=== PATIENT | male | born 1930 | race Caucasian/White ===

== ENCOUNTER 2017-04-16 21:28 | Observation (INO) | payer MEDICARE, OTHER ==
[~2017-04-16] VITALS: Ht 172.7 cm; Wt 65.0 kg
[~2017-04-16 21:28] MED LIST: ALBU8I INH; ALLO100T PO; ASPI1TAB7 PO; ATOR20TA PO; CHOL50006 PO; CYAN25003 PO; DOCU1CAP39 PO; LEVA750T PO; MEMA28CA PO; METO50CR PO; NEOSOIN TOP; PROT40TA PO; RIVA20 PO; ROBIDM5S PO
[2017-04-16 21:30] VITALS: BP 162/75; PULSE 101; RESP 16; TEMP 98.9; O2SAT 96
[2017-04-16] MEDS ORDERED: LISI2.5T3 PO (21:54)
[2017-04-16] MEDS ORDERED: ALLO100T PO (21:54)
[2017-04-16] MEDS ORDERED: XARE20TA PO (21:54)
[2017-04-16] MEDS ORDERED: MEMA28CA PO (21:54)
[2017-04-16] MEDS ORDERED: METO25TA6 PO (21:54)
[2017-04-16] MEDS ORDERED: ATOR20TA15 PO (21:54)
[2017-04-16] MEDS ORDERED: METF500T PO (21:54)
[2017-04-16] MEDS ORDERED: ASPI81CH37 CHEW (21:54)
--- NOTE | 2017-04-16 22:13 | PD ---
HPI Chief Complaint: Medical Clearance Time Seen by Provider: 21:45 Travel History International Travel<30 days: No Contact w/Intl Traveler<30days: No Traveled to known affect area: No History of Present Illness HPI The patient is an 86 year old male who presents to the [facility] emergency department with a history of or frequently choking while eating that began approximately 6 months ago with his first episode. He has a history of dementia , therefore his history is obtained from his family members at the bedside. They report that over the last 2 weeks he has had 2 episodes, today he had a third episode that was worse than any of the others. He was coughing up continuously for 45 minutes a large volume of sputum. They reported that the sputum thick and consisted of 2 cups of clear mucus. He has not had any known fevers. He reports having some nausea this time. He denies having any chest pain, chest pressure, or shortness of breath. The patient and the patient's family deny him having any recent neck pain, abdominal pain, vomiting, diarrhea , urinary symptoms, or other neurologic symptoms. [facility] Past Medical History Narrative Medical The patient's past medical history is sick and begin for hypertension, diabetes mellitus, history of coronary artery disease with a stent placed, history of pacemaker placement due to cardiac arrhythmia, history of chronic kidney disease , history of Alzheimer's dementia. Hx Anticoagulant Therapy: Yes Atrial Fibrillation: Yes Heart Rhythm Problems: Yes (BIFASCICULAR BLOCK) Cancer: No Cardiovascular Problems: Yes (PACER) High Cholesterol: Yes Coronary Artery Disease: Yes Diabetes: Yes (BORDERLINE) Patient Takes Glucophage: Yes Diminished Hearing: No Endocrine: Yes Gout: Yes Genitourinary: No Hepatitis: No Hiatal Hernia: No Hypertension: Yes Immune Disorder: No Musculoskeletal: Yes (arthritis back problems) Neurologic: No Psychiatric: No Reproductive: No Respiratory: No Myocardial Infarction: Yes Renal Failure: Yes (CHRONIC KIDNEY DISEASE STAGE III) Thyroid Disease: No Tetanus Vaccination: < 5 Years Influenza Vaccination: No Past Surgical History Narrative Surgical The patient's past surgical history is significant for cardiac catheterization with stent placement, ventral hernia repair,, pacemaker placement, and back surgery. Abdominal Surgery: Yes (VENTRAL HERNIA REPAIR) Body Medical Devices: x1 cardiac stent Cardiac Surgery: Yes (pacemaker insertion) Coronary Stent: Yes (X 1) Joint Replacement: No Pacemaker: Yes Other Surgery: Yes Social History Alcohol Use: No Tobacco Use: No (QUIT 40 YEARS AGO) Substance Use: No Allergies-Medications (Allergen,Severity, Reaction): Coded Allergies: Baclofen (Verified Allergy, Severe, Anaphylaxis, 04/16/17) Cipro (Verified Allergy, Severe, Rash, 04/16/17) Neosporin (Verified Allergy, Severe, Rash, 04/16/17) Simvastatin (Verified Allergy, Severe, Rash, 04/16/17) Zosyn (Verified Allergy, Severe, Hives, 04/16/17) Reported Meds & Prescriptions Reported Meds & Active Scripts Active Reported Namenda Xr (Memantine) 28 Mg Caper 28 Mg PO DAILY Xarelto (Rivaroxaban) 20 Mg Tab 20 Mg PO DAILY Atorvastatin (Atorvastatin Calcium) 20 Mg Tab 20 Mg PO HS Metoprolol Succinate ER 24 HR (Metoprolol Succinate) 25 Mg Tab 25 Mg PO DAILY Lisinopril 2.5 Mg Tab 2.5 Mg PO DAILY Aspirin Low Dose (Aspirin) 81 Mg Chew 162 Mg CHEW DAILY Allopurinol 100 Mg Tab 100 Mg PO DAILY Metformin (Metformin HCl) 500 Mg Tab 500 Mg PO DAILY With a meal Review of Systems Except as stated in HPI: all other systems reviewed are Neg General / Constitutional: No: Fever Eyes: No: Visual changes HENT: No: Headaches Cardiovascular: No: Chest Pain or Discomfort Respiratory: Positive: Cough, No: Shortness of Breath Gastrointestinal: Positive: Nausea, No: Abdominal Pain Genitourinary: No: Dysuria Musculoskeletal: No: Pain Skin: No Rash Neurologic: No: Weakness, Focal Abnormalities, Coordination Problem, Change in Mentation, Slurred Speech, Sensory Disturbance Psychiatric: No: Depression Endocrine: No: Polydipsia Hematologic/Lymphatic: No: Easy Bruising Physical Exam Narrative General: The patient is a well-developed well-nourished male in no acute distress. Head and Neck exam: Head is normocephalic atraumatic. Eyes: EOMI, pupils are equal round and reactive to light. Nose: Midline septum with pink mucous membranes Mouth: Dentition unremarkable. Moist mucus membranes. Posterior oropharynx is not erythematous. No tonsillar hypertrophy. Uvula midline. Airway patent. Neck: No palpable lymphadenopathy. No nuchal rigidity. No thyromegaly. Cardiovascular: Sinus tachycardia in the low 100s, heart rate of 101 on my arrival to the room without murmurs, gallops, or rubs. No pulse deficit to the extremities. On simultaneous auscultation and palpation of his radial artery Lungs: Crackles are audible in the right lower lung base, no wheezes, rhonchi. No accessory muscle use. No paroxysmal abdominal breathing. No conversational dyspnea. Abdomen: Soft, without tenderness to palpation in all 4 quadrants of the abdomen. No guarding, rebound, or rigidity. Normal bowel sounds are audible. No tenderness on palpation of McBurney's point. Negative Wynn sign. Extremities: No clubbing, cyanosis, or edema. 2+ pulses in all 4 extremities. No calf tenderness on palpation. Back: No costovertebral angle tenderness to palpation. Neurologic Exam: Grossly nonfocal. Skin Exam: No rash noted. Intact skin that is warm and dry. Data Data Last Documented VS Vital Signs Date Time Temp Pulse Resp B/P Pulse Ox O2 Delivery O2 Flow Rate FiO2 04/16/17 21:46 18 04/16/17 21:30 98.9 101 162/75 96 Room Air Orders Chest, Single Ap (04/16/17 21:54) Electrocardiogram (04/16/17 21:59) Complete Blood Count With Diff (04/16/17 21:59) Comprehensive Metabolic Panel (04/16/17 21:59) Creatine Kinase (Cpk) (04/16/17 21:59) Ckmb (Isoenzyme) Profile (04/16/17 21:59) Troponin I (04/16/17 21:59) B-Type Natriuretic Peptide (04/16/17 21:59) Prothrombin Time / Inr (Pt) (04/16/17 21:59) Act Partial Throm Time (Ptt) (04/16/17 21:59) Lipase (04/16/17 21:59) Urinalysis - C+S If Indicated (04/16/17 21:59) Iv Access Insert/Monitor (04/16/17 21:59) Ecg Monitoring (04/16/17 21:59) Oximetry (04/16/17 21:59) Blood Culture (04/16/17 22:05) Lactic Acid Sepsis Protocol (04/16/17 22:05) Ct Thorax/ Chest W Iv Contrast (04/16/17 23:07) Azithromycin Inj (Zithromax Inj) (04/16/17 23:09) Metronidazole 500 Mg Inj (Flagyl 500 Mg (04/16/17 23:09) Ceftriaxone Inj (Rocephin Inj) (04/16/17 23:15) Iohexol 350 Inj (Omnipaque 350 Inj) (04/16/17 23:46) Admit Order (Ed Use Only) (04/17/17 00:16) Labs Laboratory Tests Test 04/16/17 04/16/17 22:30 23:39 White Blood Count 10.2 TH/MM3 Red Blood Count 4.69 MIL/MM3 Hemoglobin 14.2 GM/DL Hematocrit 42.6 % Mean Corpuscular Volume 90.9 FL Mean Corpuscular Hemoglobin 30.3 PG Mean Corpuscular Hemoglobin 33.3 % Concent Red Cell Distribution Width 14.4 % Platelet Count 169 TH/MM3 Mean Platelet Volume 8.8 FL Neutrophils (%) (Auto) 94.3 % Lymphocytes (%) (Auto) 3.8 % Monocytes (%) (Auto) 0.9 % Eosinophils (%) (Auto) 0.5 % Basophils (%) (Auto) 0.5 % Neutrophils # (Auto) 9.6 TH/MM3 Lymphocytes # (Auto) 0.4 TH/MM3 Monocytes # (Auto) 0.1 TH/MM3 Eosinophils # (Auto) 0.1 TH/MM3 Basophils # (Auto) 0.1 TH/MM3 CBC Comment DIFF FINAL Differential Comment Prothrombin Time 13.4 SEC Prothromb Time International 1.2 RATIO Ratio Activated Partial 25.7 SEC Thromboplast Time Sodium Level 141 MEQ/L Potassium Level 4.3 MEQ/L Chloride Level 104 MEQ/L Carbon Dioxide Level 26.3 MEQ/L Anion Gap 11 MEQ/L Blood Urea Nitrogen 22 MG/DL Creatinine 1.22 MG/DL Estimat Glomerular Filtration 56 ML/MIN Rate Random Glucose 123 MG/DL Lactic Acid Level 1.9 mmol/L Calcium Level 8.7 MG/DL Total Bilirubin 0.8 MG/DL Aspartate Amino Transf 19 U/L (AST/SGOT) Alanine Aminotransferase 23 U/L (ALT/SGPT) Alkaline Phosphatase 85 U/L Total Creatine Kinase 45 U/L Troponin I LESS THAN 0.02 NG/ML B-Type Natriuretic Peptide 58 PG/ML Total Protein 6.7 GM/DL Albumin 3.2 GM/DL Lipase 127 U/L Urine Color YELLOW Urine Turbidity CLEAR Urine pH 6.5 Urine Specific [place] 1.019 Urine Protein NEG mg/dL Urine Glucose (UA) NEG mg/dL Urine Ketones NEG mg/dL Urine Occult Blood NEG Urine Nitrite NEG Urine Bilirubin NEG Urine Urobilinogen LESS THAN 2.0 MG/DL Urine Leukocyte Esterase NEG Urine RBC LESS THAN 1 /hpf Urine WBC LESS THAN 1 /hpf Microscopic Urinalysis Comment CULT NOT INDICATED MDM Medical Decision Making Medical Screen Exam Complete: Yes Emergency Medical Condition: Yes Medical Record Reviewed: Yes Interpretation(s) Last Impressions Chest CT 04/16/172306 Signed Impressions: Service Date/Time: Sunday, April 16, 2017 23:45 - CONCLUSION: 1. Mild bibasilar atelectasis and potentially early/mild right base pneumonia in the proper clinical setting. 2. No pulmonary mass or nodule. 3. Coronary artery calcification. Cardiac pacer present. Dustin Coffey MD Chest X-Ray 04/[id number] Signed Impressions: Service Date/Time: Sunday, April 16, 2017 22:22 - CONCLUSION: Questionable nodule or mild consolidation in the right upper lobe. Suggest a followup chest x-ray with good inspiration (PA and lateral views) to confirm resolution or consider chest CT for further evaluation. It is possible this represents the first rib and costal cartilage junction. Dustin Conway MD Differential Diagnosis Aspiration pneumonia, versus viral syndrome with vomiting, versus pneumonic abscess, versus congestive heart failure Narrative Course During the course of the patients emergency department visit, the patients history, examination, and differential diagnosis were reviewed with the patient. The patient had IV access obtained and blood work sent for analysis. The patient was placed on a cardiac rn with oximetry and blood pressure monitoring. A chest x-ray was ordered. An ECG was ordered. The patients laboratory studies were reviewed and remarkable for a white count of 10.2 with a left shift. CMP is remarkable for BUN of 22, glucose 123. Cardiac enzymes are within normal limits, BNP is less than 100. Lipase is 127, lactic acid 1.9. INR is 1.2. Urinalysis is unremarkable. Radiology studies were reviewed and remarkable for a chest x-ray that reveals mild consolidation, versus nodule in the right upper lobe of the lung, recommended CT to further evaluate. A CT scan of the thorax was ordered. The patient was noted to have a right lower lobe infiltrate. The patient will be admitted to the hospital for continued evaluation and treatment of suspected aspiration with eating, now with a right lower lobe infiltrate. The patient was started on antibiotic to cover for pneumonia related to aspiration and community-acquired pneumonia which includes Rocephin 1 g IV, Zithromax 500 IV, Flagyl 500 mg IV. The patients results were discussed with the patient, including the plan of care. I explained that further testing and/ or monitoring is indicated based on the patients history, examination, and/ or laboratory findings. Therefore, I recommended admission for additional evaluation. The patient expressed understanding and was agreeable with this plan. The patient was admitted to the hospital in stable condition and sent to a [facility]. Physician Communication Physician Communication The patient's case is discussed with Dr. Bender who did agree to admit the patient for further evaluation and treatment at this time. Diagnosis Primary Impression: PNA (pneumonia) Qualified Code: J18.1 - Pneumonia of right lower lobe due to infectious organism Admitting Information Admitting Physician Requests: Admit Shila Kilpatrick MD Apr 16, 2017 22:13
--- NOTE | 2017-04-16 22:45 | RADRPT ---
EXAM DATE/TIME: 04/16/2017 22:22 [facility] COMPARISON: CHEST SINGLE AP, December 05, 2015, 18:03. INDICATIONS : Cough and dysphagia. MEDICAL HISTORY : Myocardial infarction. SURGICAL HISTORY : Pacemaker. Stent placement. ENCOUNTER: Initial ACUITY: 1 day PAIN SCORE: 0/10 LOCATION: Bilateral chest FINDINGS: Portable AP view of the chest demonstrates a normal-sized cardiac silhouette. Lungs are underinflated . Left chest wall cardiac pacing device is present. There is mild atelectasis at the lung bases. Ther e is a questionable nodular small airspace opacity in the right upper lung zone. No effusion or pneum othorax is identified. Bones and soft tissues demonstrate no acute finding. 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 CONCLUSION: Questionable nodule or mild consolidation in the right upper lobe. Suggest a followup chest x-ray wit h good inspiration (PA and lateral views) to confirm resolution or consider chest CT for further eval uation. It is possible this represents the first rib and costal cartilage junction. Dustin Conway MD on April 16, 2017 at 22:39 Board Certified Radiologist. This report was verified electronically.
[2017-04-16 22:46] LABS: AUTOMATED NEUTROPHIL # 9.6 TH/MM3 (1.8-7.7); BASOPHIL # 0.1 TH/MM3 (0-0.2); BASOPHIL % 0.5 % (0.0-2.0); EOSINOPHIL # 0.1 TH/MM3 (0-0.4); EOSINOPHIL % 0.5 % (0.0-4.0); HEMATOCRIT 42.6 % (39.0-51.0); HEMO FLAGS DIFF FINAL; LYMPH % 3.8 % (9.0-44.0); LYMPHOCYTE # 0.4 TH/MM3 (1.0-4.8); MEAN CELL VOLUME 90.9 FL (80.0-100.0); MEAN CORPUSCULAR HEMOGLOBIN 30.3 PG (27.0-34.0); MEAN CORPUSCULAR HGB CONC 33.3 % (32.0-36.0); MONO % 0.9 % (0.0-8.0); NEUT % 94.3 % (16.0-70.0); PLATELET COUNT 169 TH/MM3 (150-450); RED BLOOD COUNT 4.69 MIL/MM3 (4.50-5.90); RED CELL DISTRIBUTION WIDTH 14.4 % (11.6-17.2); WHITE BLOOD COUNT 10.2 TH/MM3 (4.0-11.0)
[2017-04-16 23:01] LABS: APTT (PATIENT) 25.7 SEC (24.3-30.1); INTERNATIONAL NORMALIZED RATIO 1.2 RATIO; PROTHROMBIN TIME - PATIENT 13.4 SEC (9.8-11.6)
[2017-04-16 23:07] LABS: ANION GAP 11 MEQ/L (5-15); AST (GOT) 19 U/L (15-37); BICARBONATE 26.3 MEQ/L (21.0-32.0); BLOOD UREA NITROGEN 22 MG/DL (7-18); CHLORIDE 104 MEQ/L (98-107); GLOMERULAR FILTRATION RATE 56 ML/MIN (>89); POTASSIUM 4.3 MEQ/L (3.5-5.1); SODIUM (NA) 141 MEQ/L (136-145)
[2017-04-16] MEDS ORDERED: AZITHROMYCIN INJ 500 MG in SODIUM CHLOR 0.9% 250 ML INJ 250 ML IV STA (23:09)
[2017-04-16] MEDS ORDERED: metroNIDAZOLE 500 MG INJ 100 ML IV STA (23:09)
[2017-04-16 23:12] LABS: ALKALINE PHOSPHATASE 85 U/L (45-117); ALT (GPT) 23 U/L (12-78); TOTAL BILIRUBIN ADULT 0.8 MG/DL (0.2-1.0)
[2017-04-16 23:14] LABS: CREATINE KINASE 45 U/L (39-308)
[2017-04-16] MEDS ORDERED: cefTRIAXone INJ 1,000 MG in SODIUM CHLORIDE 0.9% INJ 100 ML IV ONE (23:15)
[2017-04-16] MEDS ORDERED: IOHEXOL 350 MG/ML 10 ML VIAL (for RAD DIAG) IV ONE (23:46)
[2017-04-16 23:48] LABS: BLOOD, URINE NEG (NEG); COMMENT (UR) CULT NOT INDICATED; CULTURE IF INDICATED CULT NOT INDICATED; GLUCOSE,URINE NEG (NEG); KETONE, URINE NEG (NEG); NITRITE,URINE NEG (NEG); PH, URINE 6.5 (5.0-8.5); URINE COLOR YELLOW (YELLW/STRAW)
[2017-04-17] VITALS (7 sets, daily range): BP systolic 94–126; BP diastolic 50–89; PULSE 66–92; RESP 14–20; TEMP 97.5–98.7; O2SAT 18–98
--- NOTE | 2017-04-17 00:07 | RADRPT ---
EXAM DATE/TIME: 04/16/2017 23:45 [facility] COMPARISON: CHEST SINGLE AP, April 16, 2017, 22:22. CHEST SINGLE AP, December 05, 2015, 18:03. INDICATIONS : Coughed up large amount of mucous today. IV CONTRAST: 71 cc Omnipaque 350 (iohexol) IV RADIATION DOSE: 4.09 CTDIvol (mGy) MEDICAL HISTORY : Cardiovascular disease. Hypertension. Diabetes mellitus type 2.Ventral hernia. Coronary artery diseas e. SURGICAL HISTORY : Pacemaker. Ventral hernia repair. ENCOUNTER: Initial ACUITY: 1 day PAIN SCALE: 0/10 LOCATION: chest TECHNIQUE: Volumetric scanning of the chest was performed. Using automated exposure control and adjustment of t he mA and/or kV according to patient size, radiation dose was kept as low as reasonably achievable to obtain optimal diagnostic quality images. FINDINGS: LUNGS: There is mild atelectasis of both lung bases. An area of focal, more confluent consolidation is seen posteriorly in the right lower lobe and early/mild pneumonia would be in the differential rental. No mass lesion. No pneumothorax. PLEURA: There is no pleural thickening or pleural effusion. MEDIASTINUM: Normal heart size. Coronary artery calcification noted. No mediastinal or hilar lymphadenopathy. AXILLAE: Within normal limits. No lymphadenopathy. SKELETAL: No acute bony abnormality demonstrated. Calcification seen of the costochondral junctions and there a re degenerative changes of the thoracic spine. MISCELLANEOUS: The visualized upper abdominal organs demonstrate no acute abnormality. CONCLUSION: 1. Mild bibasilar atelectasis and potentially early/mild right base pneumonia in the proper clinical setting. 2. No pulmonary mass or nodule. 3. Coronary artery calcification. Cardiac pacer present. Dustin Coffey MD on April 16, 2017 at 23:59 Board Certified Radiologist. This report was verified electronically.
[2017-04-17] MEDS ORDERED: LACTULOSE SYRUP 20 GM/30 ML CUP PO PRN (00:30)
[2017-04-17] MEDS ORDERED: ONDANSETRON HCL 4 MG/2 ML VIAL IVP PRN (00:30)
[2017-04-17] MEDS ORDERED: SENNOSIDES 8.6 MG TAB PO PRN (00:30)
[2017-04-17] MEDS ORDERED: MAGNESIUM HYDROXIDE SUSP 30 ML CUP PO PRN (00:30)
[2017-04-17] MEDS ORDERED: GLUCAGON 1 MG/ML VIAL OTHER PRN (00:30)
[2017-04-17] MEDS ORDERED: SODIUM CHLORIDE 0.9% FLUSH 10 ML FLUSH IV FLUSH PRN (00:30)
[2017-04-17] MEDS ORDERED: MORPHINE SULFATE 4 MG/ML INJ IV PRN ×2 (00:30)
[2017-04-17] MEDS ORDERED: BISACODYL 10 MG SUPP RECTAL PRN (00:30)
[2017-04-17] MEDS ORDERED: DEXTROSE 50% IN WATER 50 ML VIAL(D50) IV PRN (00:30)
[2017-04-17] MEDS: SODIUM CHLOR 0.9% 1000 ML INJ 1,000 ML IV SCH ×3 (00:45→21:00)
--- NOTE | 2017-04-17 01:52 | HHI.HP ---
HPI Service [facility] Primary Care Physician Non-Staff Admission Diagnosis Aspiration pneumonia Diagnoses: (1) Dysphagia Diagnosis: Principal (2) PNA (pneumonia) Diagnosis: Principal (3) HTN (hypertension) Diagnosis: Principal (4) DM (diabetes mellitus) Diagnosis: Principal Travel History International Travel<30 Days: No Contact w/Intl Traveler <30 Da: No Traveled to Known Affected Are: No History of Present Illness This is an 86-year-old male with a PMH of A. fib on Xarelto, HTN, CAD, Alzheimer 's Dementia and DM who was brought to the ER by family secondary to episode of choking during dinner. Per and Daughter at bedside, patient was finishing dinner, put his fork down and had sudden onset of coughing/choking followed by copious amounts of clear, thick secretions which reports was approximately 2 cups full. No nausea, vomiting, no respiratory compromise or SOB. reports similar episode approx 1wk ago while eating rice, however much less severe. States she called PCP's office and was told to come to ER for further evaluation. On arrival, BP 162/75, HR 101, O2 sat 96% on RA, Afebrile. CBC unremarkable. Chemistry essentially unremarkable except for GFR 56. Lactic Acid normal. Troponin negative. UA negative. CXR with questionable nodule or mild consolidation right upper lobe with recommendation for CT. CT Chest with mild bibasilar atelectasis and potentially early/mild right base pneumonia no nodule or mass noted. Concern for aspiration, s/p Rocephin/Zithro/Flagyl in ER. Review of Systems Except as stated in HPI: all other systems reviewed are Neg ROS: 14 point review of systems otherwise negative. Past Family Social History Past Medical History PMH: A. fib on Xarelto, HTN, CAD, Alzheimer's Dementia and DM Past Surgical History PAST SURGICAL HISTORY: Ventral Hernia Repair, Pacemaker, Back Surgery Allergies: Coded Allergies: Baclofen (Verified Allergy, Severe, Anaphylaxis, 04/16/17) Cipro (Verified Allergy, Severe, Rash, 04/16/17) Neosporin (Verified Allergy, Severe, Rash, 04/16/17) Simvastatin (Verified Allergy, Severe, Rash, 04/16/17) Zosyn (Verified Allergy, Severe, Hives, 04/16/17) Family History PAST FAMILY HISTORY: Reviewed. No h/o DM or CAD Social History PAST SOCIAL HISTORY: Negative for alcohol, tobacco or drugs. Physical Exam Vital Signs Vital Signs Date Time Temp Pulse Resp B/P Pulse Ox O2 Delivery O2 Flow Rate FiO2 04/16/17 21:46 18 04/16/17 21:30 98.9 101 16 162/75 96 Room Air Physical Exam PE: GENERAL: Pleasantly demented elderly white male in no acute distress, and daughter at bedside. HEENT: PERRLA, EOMI. No scleral icterus or conjunctival pallor. No lid lag or facial droop. CARDIOVASCULAR: Regular rate and rhythm. No obvious murmurs to auscultation. No chest tenderness to palpation. RESPIRATORY: No obvious rhonchi or wheezing. Clear to auscultation. Breath sounds equal bilaterally. GASTROINTESTINAL: Abdomen soft, non-tender, nondistended. BS normal. MUSCULOSKELETAL: Extremities without clubbing, cyanosis, or edema. No obvious deformities. NEUROLOGICAL: Awake, alert and oriented x4. No focal neurologic deficits. Moving both upper and lower extremities spontaneously. Laboratory Laboratory Tests Test 04/16/17 04/16/17 22:30 23:39 White Blood Count 10.2 Red Blood Count 4.69 Hemoglobin 14.2 Hematocrit 42.6 Mean Corpuscular Volume 90.9 Mean Corpuscular Hemoglobin 30.3 Mean Corpuscular Hemoglobin 33.3 Concent Red Cell Distribution Width 14.4 Platelet Count 169 Mean Platelet Volume 8.8 Neutrophils (%) (Auto) 94.3 Lymphocytes (%) (Auto) 3.8 Monocytes (%) (Auto) 0.9 Eosinophils (%) (Auto) 0.5 Basophils (%) (Auto) 0.5 Neutrophils # (Auto) 9.6 Lymphocytes # (Auto) 0.4 Monocytes # (Auto) 0.1 Eosinophils # (Auto) 0.1 Basophils # (Auto) 0.1 CBC Comment DIFF FINAL Differential Comment Prothrombin Time 13.4 Prothromb Time International 1.2 Ratio Activated Partial 25.7 Thromboplast Time Sodium Level 141 Potassium Level 4.3 Chloride Level 104 Carbon Dioxide Level 26.3 Anion Gap 11 Blood Urea Nitrogen 22 Creatinine 1.22 Estimat Glomerular Filtration 56 Rate Random Glucose 123 Lactic Acid Level 1.9 Calcium Level 8.7 Total Bilirubin 0.8 Aspartate Amino Transf 19 (AST/SGOT) Alanine Aminotransferase 23 (ALT/SGPT) Alkaline Phosphatase 85 Total Creatine Kinase 45 Troponin I LESS THAN 0.02 B-Type Natriuretic Peptide 58 Total Protein 6.7 Albumin 3.2 Lipase 127 Urine Color YELLOW Urine Turbidity CLEAR Urine pH 6.5 Urine Specific [place] 1.019 Urine Protein NEG Urine Glucose (UA) NEG Urine Ketones NEG Urine Occult Blood NEG Urine Nitrite NEG Urine Bilirubin NEG Urine Urobilinogen LESS THAN 2.0 Urine Leukocyte Esterase NEG Urine RBC LESS THAN 1 Urine WBC LESS THAN 1 Microscopic Urinalysis Comment CULT NOT INDICATED Date/Time Procedure Status Source Growth 04/16/17 22:30 Aerobic Blood Culture Received Blood Peripheral Pending 04/16/17 22:30 Anaerobic Blood Culture Received Blood Peripheral Pending Result Diagram: 04/16/17222904/16/172229 Assessment and Plan Problem List: (1) Dysphagia ICD Code: R13.10 Status: Acute (2) PNA (pneumonia) ICD Code: J18.9 Status: Acute (3) HTN (hypertension) ICD Code: I10 Status: Acute (4) DM (diabetes mellitus) ICD Code: E11.9 Status: Acute Assessment and Plan A/P: 1. Dysphagia: Progressive. Family reports 3rd episode of coughing/choking while eating in the last 1wk. No airway compromise, reports mostly thick, clear secretions. Possibly related to progressive dementia. Keep NPO for now, hold PO medications, Consult Speech Therapy for Swallow Study. 2. PNA: CXR w/ questionable nodule or mild consolidation right upper lobe, CT Chest with mild basilar atelectasis and early/mild right base pneumonia, no nodule or mass noted, images reviewed by me. Likely due to Aspiration from dysphagia. S/p Rocephin/Zithro/Flagyl in ER, will continue w/ IV Abx, DuoNeb prn. 3. HTN: Will monitor. Hold PO medications in light of dysphagia. 4. DM: Sliding scale w/ Accu-Cheks. Hold Metformin. 5. DVT Prophylaxis: On Xarelto 6. Social work for d/c planning as needed. Jacque Bender MD Apr 17, 2017 01:51
[2017-04-17] MEDS: INSULIN ASPART SUPPLEMENTAL SCALE SQ SCH ×4 (06:15→21:00)
[2017-04-17] MEDS: SODIUM CHLORIDE 0.9% FLUSH 10 ML FLUSH IV FLUSH SCH ×2 (09:00→20:59)
[2017-04-17] MEDS: metroNIDAZOLE 500 MG INJ 100 ML IV SCH ×2 (09:22→17:43)
[2017-04-17] MEDS: DOCUSATE SODIUM 50 MG/SENNA 8.6 MG TAB PO SCH ×2 (09:22→20:59)
--- NOTE | 2017-04-17 10:25 | PD.CONS ---
HPI History of Present Illness This is a 86 year old male with multiple medical problems including atrial fibrillation (for which he is on Xarelto at home), hypertension, coronary artery disease, diabetes, and alzheimer's dementia, who presented to the ER for "choking." He reports that he does not normally have any difficulty eating. He started having issues with this a few days ago, with solids getting caught in his esophagus. He cannot tell if it is up high or lower in his esophagus. He reports that this has happened about 3 times in the last week. He said this occurred with dinner last night and was much worse than his prior episodes. He states that he started coughing and bringing up a large amount of clear phlegm. He reports that finally, he was able to swallow and he has not since had any issues. He is in no distress and swallowing his secretions. He was evaluated by Speech therapy this morning and passed his swallow evaluation. He denies any heartburn, indigestion, nausea, vomiting, abdominal pain, shortness of breath, odynophagia, or chest pain. He denies any known history of GERD or esophageal strictures and has never had an EGD/Colonoscopy. PFSH Past Medical History Arthritis A. fib on Xarelto (on hold) HTN CAD Alzheimer's Dementia DM CKD Past Surgical History Ventral Hernia Repair Pacemaker Cardiac catheterization Back Surgery Coded Allergies: Baclofen (Verified Allergy, Severe, Anaphylaxis, 04/16/17) Cipro (Verified Allergy, Severe, Rash, 04/16/17) Neosporin (Verified Allergy, Severe, Rash, 04/16/17) Simvastatin (Verified Allergy, Severe, Rash, 04/16/17) Zosyn (Verified Allergy, Severe, Hives, 04/16/17) Medications Allergies Coded Allergies Type Severity Reaction Last Updated Verified Baclofen Allergy Severe Anaphylaxis 04/16/17 Yes Cipro Allergy Severe Rash 04/16/17 Yes Neosporin Allergy Severe Rash 04/16/17 Yes Simvastatin Allergy Severe Rash 04/16/17 Yes Zosyn Allergy Severe Hives 04/16/17 Yes Active Scripts Medications Dose Route/Sig Days Date Category Dose Instructions Namenda Xr (Memantine) 28 Mg Caper 28 Mg PO DAILY 04/16/17 Reported Xarelto (Rivaroxaban) 20 Mg Tab 20 Mg PO DAILY 04/16/17 Reported Atorvastatin (Atorvastatin Calcium) 20 Mg Tab 20 Mg PO HS 04/16/17 Reported Metoprolol Succinate ER 24 HR (Metoprolol Succinate) 25 Mg Tab 25 Mg PO DAILY 04/16/17 Reported Lisinopril 2.5 Mg Tab 2.5 Mg PO DAILY 04/16/17 Reported Aspirin Low Dose (Aspirin) 81 Mg Chew 162 Mg CHEW DAILY 04/16/17 Reported Allopurinol 100 Mg Tab 100 Mg PO DAILY 04/16/17 Reported Metformin (Metformin HCl) 500 Mg Tab 500 Mg PO DAILY 04/16/17 Reported With a meal Family History Noncontributory Social History Negative for alcohol, tobacco or drugs. Review of Systems Constitutional: COMPLAINS OF: Fatigue, DENIES: Weight loss, Change in appetite Ears, nose, mouth, throat: DENIES: Hearing loss Respiratory: COMPLAINS OF: Cough, DENIES: Shortness of breath Cardiovascular: DENIES: Chest pain Gastrointestinal: COMPLAINS OF: Difficulty Swallowing, DENIES: Abdominal pain , Black stools, Bloody stools, Constipation, Diarrhea, Nausea, Vomiting, Odynophagia, Hematemesis Musculoskeletal: COMPLAINS OF: Joint pain Neurologic: DENIES: Headache Psychiatric: COMPLAINS OF: Confusion (poor historian) GI Exam Vitals I&O Vital Signs Date Time Temp Pulse Resp B/P Pulse Ox O2 Delivery O2 Flow Rate FiO2 04/17/17 07:50 97.5 66 18 103/53 94 04/17/17 04:53 98.1 73 14 108/54 94 04/17/17 02:41 97.9 80 18 109/58 94 04/17/17 01:38 98.1 85 18 116/64 95 04/16/17 21:46 18 04/16/17 21:30 98.9 101 16 162/75 96 Room Air Imaging Last Impressions Chest CT 04/16/17 2307 Signed Impressions: Service Date/Time: Sunday, April 16, 2017 23:45 - CONCLUSION: 1. Mild bibasilar atelectasis and potentially early/mild right base pneumonia in the proper clinical setting. 2. No pulmonary mass or nodule. 3. Coronary artery calcification. Cardiac pacer present. Dustin Coffey MD Chest X-Ray 04/16/17 7189 Signed Impressions: Service Date/Time: Sunday, April 16, 2017 22:22 - CONCLUSION: Questionable nodule or mild consolidation in the right upper lobe. Suggest a followup chest x-ray with good inspiration (PA and lateral views) to confirm resolution or consider chest CT for further evaluation. It is possible this represents the first rib and costal cartilage junction. Dustin Conway MD Laboratory Test 04/16/17 04/16/17 22:30 23:39 White Blood Count 10.2 TH/MM3 Red Blood Count 4.69 MIL/MM3 Hemoglobin 14.2 GM/DL Hematocrit 42.6 % Mean Corpuscular Volume 90.9 FL Mean Corpuscular Hemoglobin 30.3 PG Mean Corpuscular Hemoglobin 33.3 % Concent Red Cell Distribution Width 14.4 % Platelet Count 169 TH/MM3 Mean Platelet Volume 8.8 FL Neutrophils (%) (Auto) 94.3 % Lymphocytes (%) (Auto) 3.8 % Monocytes (%) (Auto) 0.9 % Eosinophils (%) (Auto) 0.5 % Basophils (%) (Auto) 0.5 % Neutrophils # (Auto) 9.6 TH/MM3 Lymphocytes # (Auto) 0.4 TH/MM3 Monocytes # (Auto) 0.1 TH/MM3 Eosinophils # (Auto) 0.1 TH/MM3 Basophils # (Auto) 0.1 TH/MM3 CBC Comment DIFF FINAL Differential Comment Prothrombin Time 13.4 SEC Prothromb Time International 1.2 RATIO Ratio Activated Partial 25.7 SEC Thromboplast Time Sodium Level 141 MEQ/L Potassium Level 4.3 MEQ/L Chloride Level 104 MEQ/L Carbon Dioxide Level 26.3 MEQ/L Anion Gap 11 MEQ/L Blood Urea Nitrogen 22 MG/DL Creatinine 1.22 MG/DL Estimat Glomerular Filtration 56 ML/MIN Rate Random Glucose 123 MG/DL Lactic Acid Level 1.9 mmol/L Calcium Level 8.7 MG/DL Total Bilirubin 0.8 MG/DL Aspartate Amino Transf 19 U/L (AST/SGOT) Alanine Aminotransferase 23 U/L (ALT/SGPT) Alkaline Phosphatase 85 U/L Total Creatine Kinase 45 U/L Troponin I LESS THAN 0.02 NG/ML B-Type Natriuretic Peptide 58 PG/ML Total Protein 6.7 GM/DL Albumin 3.2 GM/DL Lipase 127 U/L Urine Color YELLOW Urine Turbidity CLEAR Urine pH 6.5 Urine Specific [place] 1.019 Urine Protein NEG mg/dL Urine Glucose (UA) NEG mg/dL Urine Ketones NEG mg/dL Urine Occult Blood NEG Urine Nitrite NEG Urine Bilirubin NEG Urine Urobilinogen LESS THAN 2.0 MG/DL Urine Leukocyte Esterase NEG Urine RBC LESS THAN 1 /hpf Urine WBC LESS THAN 1 /hpf Microscopic Urinalysis Comment CULT NOT INDICATED Date/Time Procedure Status Source Growth 04/16/17 22:30 Aerobic Blood Culture Received Blood Peripheral Pending 04/16/17 22:30 Anaerobic Blood Culture Received Blood Peripheral Pending Physical Examination HEENT: Normocephalic; atraumatic; no jaundice. CHEST: Resp. even/unlabored CARDIAC: Irregular ABDOMEN: Soft, nondistended, nontender; no hepatosplenomegaly; bowel sounds are present in all four quadrants. EXTREMITIES: No clubbing, cyanosis, or edema. SKIN: Normal; no rash; no jaundice. SPECIAL EDUCATION PARAPROFESSIONAL: No focal deficits; alert and oriented times three. Assessment and Plan Plan ASSESSMENT: - Dysphagia. No hx of known GERD or esophageal strictures, never had EGD. Pt has had 3 episodes of solids getting caught- he cannot tell if this is up high or lower. Yesterday's episode was more severe and he had significant coughing and bringing up a large amount of phlegm. He denies any odynophagia or shortness of breath. He is currently in no distress and is swallowing his secretions fine. ST was in and he passed his swallow evaluation. Plan would be for EGD with possible dilatation after the Xarelto has been on hold for a few days. - PNA. Azithromycin, Ceftriaxone, Flagyl, Nebs per primary - Atrial fibrillation. On Xarelto at home. On hold here. - HTN, CAD, DM, CKD, Alzheimer's Dementia per primary. PLAN: - Plan for EGD with possible dilatation on Monday, after Xarelto has been held for 2 days - Obtain consents - NPO after MN Monday night - Add PPI - Monitor labs - Cont ST- diet per their recommendations until Monday night - Supportive care - Further recommendations to follow based on results of above - Pt seen and examined by Dr. Green and myself and this note is written on his behalf Leona Niño Apr 17, 2017 10:25
--- NOTE | 2017-04-17 10:47 | HHI.PR ---
Subjective Remarks Follow up for dysphagia/choking. The patient states the choking episodes have happened 3x now this week. He states this is new for him. He's never had an EGD. He denies ever having problems swallowing in the past. Denies any problems swallowing liquids. He denies any nausea/vomiting or abdominal pain. Denies fevers/chills. He has no other medical complaints at this time. Objective Vitals Vital Signs Date Time Temp Pulse Resp B/P Pulse Ox O2 Delivery O2 Flow Rate FiO2 04/17/17 07:50 97.5 66 18 103/53 94 04/17/17 04:53 98.1 73 14 108/54 94 04/17/17 02:41 97.9 80 18 109/58 94 04/17/17 01:38 98.1 85 18 116/64 95 04/16/17 21:46 18 04/16/17 21:30 98.9 101 16 162/75 96 Room Air Result Diagram: 04/16/17222904/16/172229 Imaging Last Impressions Chest CT 04/16/177 Signed Impressions: Service Date/Time: Sunday, April 16, 2017 23:45 - CONCLUSION: 1. Mild bibasilar atelectasis and potentially early/mild right base pneumonia in the proper clinical setting. 2. No pulmonary mass or nodule. 3. Coronary artery calcification. Cardiac pacer present. Dustin Coffey MD Chest X-Ray 04/16/172153 Signed Impressions: Service Date/Time: Sunday, April 16, 2017 22:22 - CONCLUSION: Questionable nodule or mild consolidation in the right upper lobe. Suggest a followup chest x-ray with good inspiration (PA and lateral views) to confirm resolution or consider chest CT for further evaluation. It is possible this represents the first rib and costal cartilage junction. Dustin Conway MD Objective Remarks GENERAL: Well-nourished, well-developed pleasant elderly male patient in [facility]. SKIN: Warm and dry. No rash. HEENT: Normocephalic. Atraumatic. Pupils equal and round. Mucous membranes pink and moist. NECK: Supple. Trachea midline. CARDIOVASCULAR: Regular rate and rhythm. S1, S2 noted. No murmur appreciated. RESPIRATORY: No accessory muscle use. Clear to auscultation. Breath sounds equal bilaterally. GASTROINTESTINAL: Abdomen soft, non-tender, nondistended. Normoactive bowel sounds x4. MUSCULOSKELETAL: No obvious deformities. Extremities without clubbing, cyanosis , or edema. NEUROLOGICAL: Awake and alert. No obvious cranial nerve deficits. Motor grossly within normal limits. Normal speech. Medications and IVs Current Medications Medications (Trade) Dose Ordered Sig/Sera Route Start Time Stop Time Status Last Admin (D50w (Vial) Inj) 50 ml UNSCH PRN IV 04/17/17 00:30 Glucagon 1 mg 1 mg UNSCH PRN OTHER 04/17/17 00:30 (NS 1000 ml Inj) 1,000 ml @ 100 mls/hr Q10H IV 04/17/17 00:24 04/17/17 09:23 (NS Flush) 2 ml UNSCH PRN IV FLUSH 04/17/17 00:30 (NS Flush) 2 ml BID IV FLUSH 04/17/17 09:00 (Zofran Inj) 4 mg Q6H PRN IVP 04/17/17 00:30 (Morphine Inj) 1 mg Q3H PRN IV 04/17/17 00:30 (Morphine Inj) 2 mg Q3H PRN IV 04/17/17 00:30 (Annamaria-Colace) 1 tab BID PO 04/17/17 09:00 04/17/17 09:22 (Milk Of Magnesia Liq) 30 ml Q12H PRN PO 04/17/17 00:30 (Senokot) 17.2 mg Q12H PRN PO 04/17/17 00:30 (Dulcolax Supp) 10 mg DAILY PRN RECTAL 04/17/17 00:30 Lactulose 30 ml 30 ml DAILY PRN PO 04/17/17 00:30 Ceftriaxone Sodium 1000 mg/ Sodium Chloride 100 ml @ 200 mls/hr Q24H IV 04/17/17 23:00 Azithromycin 500 mg/Sodium Chloride 250 ml @ 250 mls/hr Q24H IV 04/18/17 00:00 (Flagyl 500 Mg Inj) 100 ml @ 100 mls/hr Q8H IV 04/17/17 08:00 04/17/17 09:22 (Protonix Inj) 40 mg DAILY IV PUSH 04/17/17 10:30 A/P Problem List: (1) Dysphagia ICD Code: R13.10 Status: Acute (2) PNA (pneumonia) ICD Code: J18.9 Status: Acute (3) HTN (hypertension) ICD Code: I10 Status: Acute (4) DM (diabetes mellitus) ICD Code: E11.9 Status: Acute Assessment and Plan 86-year-old male with a PMH of A. fib on Xarelto, HTN, CAD, Alzheimer's Dementia and DM who was brought to the ER by family secondary to multiple episodes of choking. Dysphagia: Progressive. Family reports 3rd episode of coughing/choking while eating in the last 1wk. No airway compromise, reports mostly thick, clear secretions. Possibly related to progressive dementia. Keep NPO for now, hold PO medications, Consult Speech Therapy for Swallow Study. Consult gastroenterology, likely needs EGD. Aspiration Pneumonia: CXR w/ questionable nodule or mild consolidation right upper lobe, CT Chest with mild basilar atelectasis and early/mild right base pneumonia, no nodule or mass noted, images reviewed by me. Likely due to Aspiration from dysphagia. Continue antibiotics with IV Rocephin/Zithro/ Flagyl. DuoNeb prn. Check sputum culture. HTN: Will monitor. Hold PO medications in light of dysphagia. DM: Sliding scale w/ Accu-Cheks. Hold Metformin. DVT Prophylaxis: Xarelto on hold for upcoming procedure Lou Dunbar PA-C Apr 17, 2017 10:47 am
[2017-04-17] MEDS: PANTOPRAZOLE SODIUM 40 MG VIAL IV PUSH SCH (12:40)
[2017-04-17] MEDS ORDERED: diphenhydrAMINE HCL 50 MG/ML VIAL IV PRN (13:45)
--- NOTE | 2017-04-17 14:25 | EKG ---
Date Performed: 04/17/2017 Time Performed: 01:44:44 PTAGE: 86 years EKG: Sinus rhythm WITH FIRST DEGREE AV BLOCK RIGHT BUNDLE BRANCH BLOCK LEFT ANTERIOR FASCICULAR BLOCK POSSIBLE SEPTAL MYOCARDIAL INFARCTION Since previous tracing, no significant change noted ABNORMAL ECG PREVIOUS TRACING : 12/05/2015 17.57 DOCTOR: Diogo Vincent Interpretating Date/Time 04/17/2017 14:21:56
[2017-04-17] MEDS: cefTRIAXone INJ 1,000 MG in SODIUM CHLORIDE 0.9% INJ 100 ML IV SCH (23:07)
[2017-04-18 00:08] VITALS: BP 126/71; PULSE 63; RESP 18; TEMP 98.8; O2SAT 97
[2017-04-18] MEDS: metroNIDAZOLE 500 MG INJ 100 ML IV SCH ×3 (00:56→16:33)
[2017-04-18] MEDS: AZITHROMYCIN INJ 500 MG in SODIUM CHLOR 0.9% 250 ML INJ 250 ML IV SCH (02:11)
[2017-04-18 03:33] VITALS: BP 140/61; PULSE 72; RESP 18; TEMP 98.5; O2SAT 95
[2017-04-18] MEDS: SODIUM CHLOR 0.9% 1000 ML INJ 1,000 ML IV SCH ×2 (06:03→16:33)
[2017-04-18] MEDS: INSULIN ASPART SUPPLEMENTAL SCALE SQ SCH ×4 (06:06→21:00)
[2017-04-18 07:52] LABS: AUTOMATED NEUTROPHIL # 5.4 TH/MM3 (1.8-7.7); BASOPHIL % 0.7 % (0.0-2.0); EOSINOPHIL # 0.2 TH/MM3 (0-0.4); EOSINOPHIL % 3.3 % (0.0-4.0); HEMATOCRIT 34.3 % (39.0-51.0); HEMO FLAGS DIFF FINAL; LYMPH % 10.1 % (9.0-44.0); LYMPHOCYTE # 0.7 TH/MM3 (1.0-4.8); MEAN CELL VOLUME 90.8 FL (80.0-100.0); MEAN CORPUSCULAR HEMOGLOBIN 29.6 PG (27.0-34.0); MEAN CORPUSCULAR HGB CONC 32.6 % (32.0-36.0); MONO % 11.5 % (0.0-8.0); NEUT % 74.4 % (16.0-70.0); PLATELET COUNT 123 TH/MM3 (150-450); RED BLOOD COUNT 3.78 MIL/MM3 (4.50-5.90); RED CELL DISTRIBUTION WIDTH 14.4 % (11.6-17.2); WHITE BLOOD COUNT 7.3 TH/MM3 (4.0-11.0)
[2017-04-18 08:01] VITALS: BP 129/71; PULSE 74; RESP 18; TEMP 97.3; O2SAT 95
[2017-04-18 08:15] LABS: ALKALINE PHOSPHATASE 55 U/L (45-117); ALT (GPT) 18 U/L (12-78); ANION GAP 8 MEQ/L (5-15); AST (GOT) 16 U/L (15-37); BICARBONATE 23.5 MEQ/L (21.0-32.0); BLOOD UREA NITROGEN 14 MG/DL (7-18); CHLORIDE 109 MEQ/L (98-107); GLOMERULAR FILTRATION RATE 96 ML/MIN (>89); POTASSIUM 3.9 MEQ/L (3.5-5.1); SODIUM (NA) 140 MEQ/L (136-145); TOTAL BILIRUBIN ADULT 0.6 MG/DL (0.2-1.0)
[2017-04-18] MEDS: PANTOPRAZOLE SODIUM 40 MG VIAL IV PUSH SCH (08:24)
[2017-04-18] MEDS: SODIUM CHLORIDE 0.9% FLUSH 10 ML FLUSH IV FLUSH SCH ×2 (08:24→22:51)
[2017-04-18] MEDS: DOCUSATE SODIUM 50 MG/SENNA 8.6 MG TAB PO SCH ×2 (08:24→21:00)
--- NOTE | 2017-04-18 12:07 | HHI.PR ---
Subjective Remarks In bed, says he is not able to eat much . Says she doesn't have pain whith eating. Says she is coughing if he is eating. No feevr or chills. No n/v/d/c. Plan for EGD tomorrow. Patient agreed to it. Objective Vitals Vital Signs Date Time Temp Pulse Resp B/P Pulse Ox O2 Delivery O2 Flow Rate FiO2 04/18/17 08:01 97.3 74 18 129/71 95 04/18/17 03:33 98.5 72 18 140/61 95 04/18/17 00:08 98.8 63 18 126/71 97 04/17/17 20:06 98.7 81 18 106/52 94 04/17/17 16:24 98.3 92 16 126/59 04/17/17 14:05 97.6 86 20 126/89 98 Result Diagram: 04/18/17 0633 04/18/17 0633 Imaging Last Impressions Chest CT 04/16/17 2307 Signed Impressions: Service Date/Time: Sunday, April 16, 2017 23:45 - CONCLUSION: 1. Mild bibasilar atelectasis and potentially early/mild right base pneumonia in the proper clinical setting. 2. No pulmonary mass or nodule. 3. Coronary artery calcification. Cardiac pacer present. Dustin Coffey MD Chest X-Ray 04/16/172153 Signed Impressions: Service Date/Time: Sunday, April 16, 2017 22:22 - CONCLUSION: Questionable nodule or mild consolidation in the right upper lobe. Suggest a followup chest x-ray with good inspiration (PA and lateral views) to confirm resolution or consider chest CT for further evaluation. It is possible this represents the first rib and costal cartilage junction. Dustin Conway MD Objective Remarks GENERAL: Well-nourished, well-developed pleasant elderly male patient in [facility]. Pleasantly confused elderly male. SKIN: Warm and dry. No rash. HEENT: Normocephalic. Atraumatic. Pupils equal and round. Mucous membranes pink and moist. NECK: Supple. Trachea midline. CARDIOVASCULAR: Regular rate and rhythm. S1, S2 noted. No murmur appreciated. RESPIRATORY: No accessory muscle use. Clear to auscultation. Breath sounds equal bilaterally. GASTROINTESTINAL: Abdomen soft, non-tender, nondistended. Normoactive bowel sounds x4. MUSCULOSKELETAL: No obvious deformities. Extremities without clubbing, cyanosis , or edema. NEUROLOGICAL: Awake and alert. No obvious cranial nerve deficits. Motor grossly within normal limits. Normal speech. A/P Problem List: (1) Dysphagia ICD Code: R13.10 Status: Acute (2) PNA (pneumonia) ICD Code: J18.9 Status: Acute (3) HTN (hypertension) ICD Code: I10 Status: Acute (4) DM (diabetes mellitus) ICD Code: E11.9 Status: Acute Assessment and Plan 86-year-old male with a PMH of A. fib on Xarelto, HTN, CAD, Alzheimer's Dementia and DM who was brought to the ER by family secondary to multiple episodes of choking. Dysphagia: Progressive. Family reports 3rd episode of coughing/choking while eating in the last 1wk. No airway compromise, reports mostly thick, clear secretions. Possibly related to progressive dementia. Keep NPO for now, hold PO medications, Consult Speech Therapy for Swallow Study. Consult gastroenterology, likely needs EGD. Discussed with GI plan for EGD with dilation tomorrow. Hold Xarelto. Aspiration Pneumonia: CXR w/ questionable nodule or mild consolidation right upper lobe, CT Chest with mild basilar atelectasis and early/mild right base pneumonia, no nodule or mass noted, images reviewed by me. Likely due to Aspiration from dysphagia. Continue antibiotics with IV Rocephin/Zithro/ Flagyl. DuoNeb prn. Check sputum culture. HTN: Will monitor. Hold PO medications in light of dysphagia. DM: Sliding scale w/ Accu-Cheks. Hold Metformin. DVT Prophylaxis: Xarelto on hold for upcoming procedure Discussed with the patient, nurse, GI service. Problem Qualifiers (1) PNA (pneumonia): Qualified Code: J18.1 - Pneumonia of right lower lobe due to infectious organism Neli Woodson MD Apr 18, 2017 12:06
--- NOTE | 2017-04-18 13:58 | HHI.GIFU ---
Subjective Remarks Pt eating lunch, visiting with family. Denies n/v, abd pain. Objective Vitals I&O Vital Signs Date Time Temp Pulse Resp B/P Pulse Ox O2 Delivery O2 Flow Rate FiO2 04/18/17 08:01 97.3 74 18 129/71 95 04/18/17 03:33 98.5 72 18 140/61 95 04/18/17 00:08 98.8 63 18 126/71 97 04/17/17 20:06 98.7 81 18 106/52 94 04/17/17 16:24 98.3 92 16 126/59 04/17/17 14:05 97.6 86 20 126/89 98 I/O 04/17/17 04/17/17 04/17/17 04/18/17 04/18/17 04/18/17 07:00 15:00 23:00 07:00 15:00 23:00 Intake Total 360 ml Output Total 480 ml Balance -120 ml Intake Oral 360 ml Output Urine Total 480 ml # Voids 3 Laboratory Laboratory Tests Test 04/18/17 06:33 White Blood Count 7.3 Red Blood Count 3.78 Hemoglobin 11.2 Hematocrit 34.3 Mean Corpuscular Volume 90.8 Mean Corpuscular Hemoglobin 29.6 Mean Corpuscular Hemoglobin 32.6 Concent Red Cell Distribution Width 14.4 Platelet Count 123 Mean Platelet Volume 9.1 Neutrophils (%) (Auto) 74.4 Lymphocytes (%) (Auto) 10.1 Monocytes (%) (Auto) 11.5 Eosinophils (%) (Auto) 3.3 Basophils (%) (Auto) 0.7 Neutrophils # (Auto) 5.4 Lymphocytes # (Auto) 0.7 Monocytes # (Auto) 0.8 Eosinophils # (Auto) 0.2 Basophils # (Auto) 0.0 CBC Comment DIFF FINAL Differential Comment Sodium Level 140 Potassium Level 3.9 Chloride Level 109 Carbon Dioxide Level 23.5 Anion Gap 8 Blood Urea Nitrogen 14 Creatinine 0.77 Estimat Glomerular Filtration 96 Rate Random Glucose 77 Calcium Level 7.5 Total Bilirubin 0.6 Aspartate Amino Transf 16 (AST/SGOT) Alanine Aminotransferase 18 (ALT/SGPT) Alkaline Phosphatase 55 Total Protein 5.1 Albumin 2.4 Date/Time Procedure Status Source Growth 04/16/17 22:30 Aerobic Blood Culture - Preliminary Resulted Blood Peripheral NO GROWTH IN 2 DAYS 04/16/17 22:30 Anaerobic Blood Culture - Preliminary Resulted Blood Peripheral NO GROWTH IN 2 DAYS Imaging Last Impressions Chest CT 04/16/17 2307 Signed Impressions: Service Date/Time: Sunday, April 16, 2017 23:45 - CONCLUSION: 1. Mild bibasilar atelectasis and potentially early/mild right base pneumonia in the proper clinical setting. 2. No pulmonary mass or nodule. 3. Coronary artery calcification. Cardiac pacer present. Dustin Coffey MD Chest X-Ray 04/16/172153 Signed Impressions: Service Date/Time: Sunday, April 16, 2017 22:22 - CONCLUSION: Questionable nodule or mild consolidation in the right upper lobe. Suggest a followup chest x-ray with good inspiration (PA and lateral views) to confirm resolution or consider chest CT for further evaluation. It is possible this represents the first rib and costal cartilage junction. Dustin Conway MD Physical Exam HEENT: PERRL; normocephalic; atraumatic; no jaundice. CHEST: CTA CARDIAC: RRR ABDOMEN: Soft, nondistended, nontender; no hepatosplenomegaly; bowel sounds are present in all four quadrants. EXTREMITIES: No clubbing, cyanosis, or edema. SKIN: Normal; no rash; no jaundice. RESOURCE RECOVERY SPECIALIST: No focal deficits; oriented to self and place. Assessment and Plan Plan ASSESSMENT: - Dysphagia. No hx of known GERD or esophageal strictures, never had EGD. Pt has had 3 episodes of solids getting caught- he cannot tell if this is up high or lower. Yesterday's episode was more severe and he had significant coughing and bringing up a large amount of phlegm. He denies any odynophagia or shortness of breath. He is currently in no distress and is swallowing his secretions fine. ST was in and he passed his swallow evaluation. Plan EGD with possible dilatation tomorrow. Daughter and request that they be present for anesthesia interview prior to procedure b/c pt is confused and will give incorrect medical information. is POA. They live close to hospital and can be here within 10 minutes. Zaria Villalobos [phone], [phone]. - PNA. Azithromycin, Ceftriaxone, Flagyl, Nebs per primary - Atrial fibrillation. On Xarelto at home. On hold here. - HTN, CAD, DM, CKD, Alzheimer's Dementia per primary. PLAN: - Plan for EGD with possible dilatation on tomorrow, after Xarelto has been held for 2 days - Add PPI - Monitor labs - Cont ST- diet per their recommendations until Monday night - Supportive care - Further recommendations to follow based on results of above - Pt seen and examined by Dr. Green and myself and this note is written on his behalf Fouzia Bernal Apr 18, 2017 13:58
[2017-04-18 16:02] VITALS: BP 153/63; PULSE 69; RESP 18; TEMP 97.9; O2SAT 95
[2017-04-18 17:01] LABS: HEMOGLOBIN A1a 1.3 %; HEMOGLOBIN A1b 2.1 %; HEMOGLOBIN Ao 84.8 %; HEMOGLOBIN LA1C 1.7 %; HEMOGLOBIN P3 3.9 %
[2017-04-18 20:00] VITALS: BP 151/68; PULSE 71; RESP 20; TEMP 98.1; O2SAT 94
[2017-04-18] MEDS: cefTRIAXone INJ 1,000 MG in SODIUM CHLORIDE 0.9% INJ 100 ML IV SCH (22:52)
[2017-04-19] VITALS (8 sets, daily range): BP systolic 133–174; BP diastolic 63–89; PULSE 62–95; RESP 18–20; TEMP 96.5–98.2; O2SAT 95–97
[2017-04-19] MEDS: metroNIDAZOLE 500 MG INJ 100 ML IV SCH ×3 (01:41→16:24)
[2017-04-19] MEDS: SODIUM CHLOR 0.9% 1000 ML INJ 1,000 ML IV SCH ×2 (01:47→12:45)
[2017-04-19] MEDS: AZITHROMYCIN INJ 500 MG in SODIUM CHLOR 0.9% 250 ML INJ 250 ML IV SCH (03:51)
[2017-04-19] MEDS: INSULIN ASPART SUPPLEMENTAL SCALE SQ SCH ×4 (07:00→21:00)
[2017-04-19] MEDS ORDERED: PROPOFOL 200 MG/20 ML AMP IV ONE (08:52)
[2017-04-19 09:00] LABS: AUTOMATED NEUTROPHIL # 5.5 TH/MM3 (1.8-7.7); BASOPHIL % 0.4 % (0.0-2.0); EOSINOPHIL # 0.2 TH/MM3 (0-0.4); EOSINOPHIL % 3.2 % (0.0-4.0); HEMATOCRIT 35.8 % (39.0-51.0); HEMO FLAGS DIFF FINAL; LYMPH % 10.1 % (9.0-44.0); LYMPHOCYTE # 0.8 TH/MM3 (1.0-4.8); MEAN CORPUSCULAR HEMOGLOBIN 30.1 PG (27.0-34.0); MEAN CORPUSCULAR HGB CONC 33.4 % (32.0-36.0); NEUT % 73.3 % (16.0-70.0); PLATELET COUNT 126 TH/MM3 (150-450); RED BLOOD COUNT 3.99 MIL/MM3 (4.50-5.90); RED CELL DISTRIBUTION WIDTH 14.2 % (11.6-17.2); WHITE BLOOD COUNT 7.6 TH/MM3 (4.0-11.0)
[2017-04-19] MEDS ORDERED: EPINEPHrine HCL (1:10,000) 1 MG/10 ML SYRINGE OTHER ONE (09:11)
--- NOTE | 2017-04-19 09:25 | HHI.GIFU ---
Subjective Remarks Immediate postop note: EGD with esophageal dilatation over guidewire with biopsy with injection of epi Indication: dysphagia Meds: MAC Findings: Esophagus distal clot at GE Junction, with tiny ulceration. 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 No tumor appreciated. Stomach: Mild gastritis. Biopsy taken from antrum Duodenum: normal. Esophageal dilatation performed 16mm savary relook Blood in stomach Repeat dilatation 17mm savary dilator Relook Same. minor bleeding from stricture. Clot still present. Injected 4cc of 1:10,000 epinephrine. Blanching occurred but not excessive. Objective Vitals I&O Vital Signs Date Time Temp Pulse Resp B/P Pulse Ox O2 Delivery O2 Flow Rate FiO2 04/19/17 08:33 97.6 67 20 142/89 95 04/19/17 07:30 97.6 67 20 142/89 95 04/19/17 04:00 98.0 71 20 154/70 97 04/19/17 00:00 98.2 64 20 174/77 96 04/18/17 20:00 98.1 71 20 151/68 94 04/18/17 16:02 97.9 69 18 153/63 95 I/O 04/18/17 04/18/17 04/18/17 04/19/17 04/19/17 04/19/17 07:00 15:00 23:00 07:00 15:00 23:00 Intake Total 360 ml 0 ml Output Total 480 ml Balance -120 ml 0 ml Intake Oral 360 ml 0 ml Output Urine Total 480 ml # Voids 3 4 Laboratory Laboratory Tests Test 04/19/17 06:18 White Blood Count 7.6 Red Blood Count 3.99 Hemoglobin 12.0 Hematocrit 35.8 Mean Corpuscular Volume 90.0 Mean Corpuscular Hemoglobin 30.1 Mean Corpuscular Hemoglobin 33.4 Concent Red Cell Distribution Width 14.2 Platelet Count 126 Mean Platelet Volume 9.1 Neutrophils (%) (Auto) 73.3 Lymphocytes (%) (Auto) 10.1 Monocytes (%) (Auto) 13.0 Eosinophils (%) (Auto) 3.2 Basophils (%) (Auto) 0.4 Neutrophils # (Auto) 5.5 Lymphocytes # (Auto) 0.8 Monocytes # (Auto) 1.0 Eosinophils # (Auto) 0.2 Basophils # (Auto) 0.0 CBC Comment DIFF FINAL Differential Comment Date/Time Procedure Status Source Growth 04/16/17 22:30 Aerobic Blood Culture - Preliminary Resulted Blood Peripheral NO GROWTH IN 2 DAYS 04/16/17 22:30 Anaerobic Blood Culture - Preliminary Resulted Blood Peripheral NO GROWTH IN 2 DAYS Physical Exam HEENT: PERRL; normocephalic; atraumatic; no jaundice. CHEST: CTA CARDIAC: RRR ABDOMEN: Soft, nondistended, nontender; no hepatosplenomegaly; bowel sounds are present in all four quadrants. EXTREMITIES: No clubbing, cyanosis, or edema. SKIN: Normal; no rash; no jaundice. WAREHOUSE SHIPPING ASSOCIATE: No focal deficits; oriented to self and place. Assessment and Plan Plan ASSESSMENT: - Dysphagia. No hx of known GERD or esophageal strictures, never had EGD. Pt has had 3 episodes of solids getting caught- he cannot tell if this is up high or lower. Yesterday's episode was more severe and he had significant coughing and bringing up a large amount of phlegm. He denies any odynophagia or shortness of breath. He is currently in no distress and is swallowing his secretions fine. ST was in and he passed his swallow evaluation. Plan EGD with possible dilatation tomorrow. Daughter and request that they be present for anesthesia interview prior to procedure b/c pt is confused and will give incorrect medical information. is POA. They live close to hospital and can be here within 10 minutes. Zaria Villalobos [phone], [phone]. - PNA. Azithromycin, Ceftriaxone, Flagyl, Nebs per primary - Atrial fibrillation. On Xarelto at home. On hold here. - HTN, CAD, DM, CKD, Alzheimer's Dementia per primary. 04/19 EGD with dilatation and control of bleeding at GE Junction. There appeared to be a tiny ulceration with an adherent clot prior to the dilatation. No tumor seen. PLAN: - increase PPI to BID IV - Monitor labs - Full liquid diet - Continue to hold Xarelto - Repeat EGD if any evidence of bleeding next 24 hours. Loki Green MD Apr 19, 2017 09:24
[2017-04-19 09:32] LABS: BICARBONATE 21.9 MEQ/L (21.0-32.0); POTASSIUM 3.8 MEQ/L (3.5-5.1)
[2017-04-19 09:58] LABS: CALCIUM-PROTEIN CORRECTED 8.6 MG/DL (8.5-10.1)
[2017-04-19] MEDS: DOCUSATE SODIUM 50 MG/SENNA 8.6 MG TAB PO SCH ×2 (10:36→21:00)
[2017-04-19] MEDS: SODIUM CHLORIDE 0.9% FLUSH 10 ML FLUSH IV FLUSH SCH (10:36)
--- NOTE | 2017-04-19 11:09 | HHI.PR ---
Subjective Remarks NPO awaiting for egd/dilation today. Says she wants to eat and drink water. No abd pain. No fever or chills. Denies nause/vomiting, diarrhea or constipation. No cough. Objective Vitals Vital Signs Date Time Temp Pulse Resp B/P Pulse Ox O2 Delivery O2 Flow Rate FiO2 04/19/17 09:42 73 18 159/73 95 04/19/17 09:32 76 18 153/66 95 04/19/17 09:22 98.0 79 18 151/70 96 04/19/17 08:33 97.6 67 20 142/89 95 04/19/17 07:30 97.6 67 20 142/89 95 04/19/17 04:00 98.0 71 20 154/70 97 04/19/17 00:00 98.2 64 20 174/77 96 04/18/17 20:00 98.1 71 20 151/68 94 04/18/17 16:02 97.9 69 18 153/63 95 I/O 04/18/17 04/18/17 04/18/17 04/19/17 04/19/17 04/19/17 07:00 15:00 23:00 07:00 15:00 23:00 Intake Total 360 ml 0 ml 500 ml Output Total 480 ml Balance -120 ml 0 ml 500 ml Intake Oral 360 ml 0 ml Other 500 ml Output Urine Total 480 ml # Voids 3 4 Result Diagram: 04/19/1718 04/19/17 0618 Imaging Last Impressions Chest CT 04/16/17 2307 Signed Impressions: Service Date/Time: Sunday, April 16, 2017 23:45 - CONCLUSION: 1. Mild bibasilar atelectasis and potentially early/mild right base pneumonia in the proper clinical setting. 2. No pulmonary mass or nodule. 3. Coronary artery calcification. Cardiac pacer present. Dustin Coffey MD Chest X-Ray 04/16/17 0809 Signed Impressions: Service Date/Time: Sunday, April 16, 2017 22:22 - CONCLUSION: Questionable nodule or mild consolidation in the right upper lobe. Suggest a followup chest x-ray with good inspiration (PA and lateral views) to confirm resolution or consider chest CT for further evaluation. It is possible this represents the first rib and costal cartilage junction. Dustin Conway MD Objective Remarks GENERAL: Well-nourished, well-developed pleasant elderly male patient in NAD. Pleasantly confused elderly male. SKIN: Warm and dry. No rash. HEENT: Normocephalic. Atraumatic. Pupils equal and round. Mucous membranes pink and moist. NECK: Supple. Trachea midline. CARDIOVASCULAR: Regular rate and rhythm. S1, S2 noted. No murmur appreciated. RESPIRATORY: No accessory muscle use. Clear to auscultation. Breath sounds equal bilaterally. GASTROINTESTINAL: Abdomen soft, non-tender, nondistended. Normoactive bowel sounds x4. MUSCULOSKELETAL: No obvious deformities. Extremities without clubbing, cyanosis , or edema. NEUROLOGICAL: Awake and alert. No obvious cranial nerve deficits. Motor grossly within normal limits. Normal speech. A/P Problem List: (1) Dysphagia ICD Code: R13.10 Status: Acute (2) PNA (pneumonia) ICD Code: J18.9 Status: Acute (3) HTN (hypertension) ICD Code: I10 Status: Acute (4) DM (diabetes mellitus) ICD Code: E11.9 Status: Acute Assessment and Plan 86-year-old male with a PMH of A. fib on Xarelto, HTN, CAD, Alzheimer's Dementia and DM who was brought to the ER by family secondary to multiple episodes of choking. Dysphagia: Progressive. Family reports 3rd episode of coughing/choking while eating in the last 1wk. No airway compromise, reports mostly thick, clear secretions. Possibly related to progressive dementia. Keep NPO for now, hold PO medications, Consult Speech Therapy for Swallow Study. Consult gastroenterology, likely needs EGD. Plan for EGD with dilation 04/19/17. Hold Xarelto. Aspiration Pneumonia: CXR w/ questionable nodule or mild consolidation right upper lobe, CT Chest with mild basilar atelectasis and early/mild right base pneumonia, no nodule or mass noted, images reviewed by me. Likely due to Aspiration from dysphagia. Continue antibiotics with IV Rocephin/Zithro/ Flagyl. DuoNeb prn. Check sputum culture. HTN: Will monitor. Hold PO medications in light of dysphagia. DM: Sliding scale w/ Accu-Cheks. Hold Metformin. DVT Prophylaxis: Xarelto on hold for upcoming procedure Discussed with the patient, nurse, GI service. Problem Qualifiers (1) PNA (pneumonia): Qualified Code: J18.1 - Pneumonia of right lower lobe due to infectious organism Neli Woodson MD Apr 19, 2017 11:09
[2017-04-19] MEDS: PANTOPRAZOLE SODIUM 40 MG VIAL IV PUSH SCH (16:25)
[2017-04-19] MEDS: cefTRIAXone INJ 1,000 MG in SODIUM CHLORIDE 0.9% INJ 100 ML IV SCH (23:00)
[2017-04-20] MEDS: metroNIDAZOLE 500 MG INJ 100 ML IV SCH ×2 (00:01→07:41)
[2017-04-20] MEDS: SODIUM CHLOR 0.9% 1000 ML INJ 1,000 ML IV SCH ×2 (00:02→07:42)
[2017-04-20] MEDS: AZITHROMYCIN INJ 500 MG in SODIUM CHLOR 0.9% 250 ML INJ 250 ML IV SCH ×3 (01:34→02:53)
[2017-04-20 01:40] VITALS: BP 166/74; PULSE 84; RESP 20; TEMP 97.4; O2SAT 96
[2017-04-20] MEDS: cefTRIAXone INJ 1,000 MG in SODIUM CHLORIDE 0.9% INJ 100 ML IV SCH ×2 (01:48→01:53)
[2017-04-20 04:13] VITALS: BP 146/73; PULSE 79; RESP 18; TEMP 96.6; O2SAT 80
[2017-04-20 04:40] VITALS: TEMP 98.6
[2017-04-20] MEDS: PANTOPRAZOLE SODIUM 40 MG VIAL IV PUSH SCH (05:55)
[2017-04-20] MEDS: INSULIN ASPART SUPPLEMENTAL SCALE SQ SCH ×2 (05:56→11:00)
--- NOTE | 2017-04-20 07:18 | MP ---
cc: NELI WOODSON MD, HAROLD H. MD DATE OF PROCEDURE 04/19/2017 PROCEDURE Esophagogastroduodenoscopy with esophageal dilatation over a guidewire with biopsy with injection of epinephrine for control of hemorrhage. INDICATIONS Dysphagia. REFERRING PHYSICIAN Neli Woodson MD PROCEDURE After informed consent was obtained, the patient was placed in the left side down position. He was sedated by the Anesthesia Service. After adequate sedation was achieved, the Pentax video gastroscope was inserted in the oropharynx and advanced through the esophagus, stomach and duodenum. It was then slowly withdrawn, examining the mucosal surfaces carefully. Biopsy was obtained in the gastric antrum. A guidewire was left in place as the scope was slowly withdrawn over the guidewire. A 16-mm Savary dilator was passed down through the esophagus into the stomach. The dilator was then removed along with the guidewire and a re-look examination showed that there was some blood in the stomach emanating from the distal esophageal stricture. It was felt that additional dilatation could be performed. The guidewire was then left in place again and a 17-mm dilator was passed down to the distal esophagus and then the dilator and guidewire were removed. The scope was then reinserted to the stomach and there was some minor bleeding present emanating from the dilated stricture. There was an adherent clot on the stricture where there may have been a small ulceration. This area was injected with epinephrine 1:10,000, a total of 4 cc. The scope was then withdrawn and the procedure was terminated. He tolerated the procedure well. Post-procedure he had mild tachycardia that lasted for 2-3 minutes but it was controlled with an injection of metoprolol by the nurse insurance claims specialist. He was returned to the recovery area in stable condition. FINDINGS 1. The esophagus initially showed a clot at the GE junction, probably with a tiny ulceration. There was no evidence of tumor appreciated. The esophagus was dilated with a 16-mm and then a 17-mm Savary dilator. After the esophageal dilatation, there was some blood in the stomach coming from the stricture. There was no evidence of a perforation or any other complication. The distal clot was still present at the GE junction and it was adherent and it was decided to inject some epi into the area to prevent any additional bleeding. 4 cc of epinephrine were injected 1:10,000. 2. In the stomach there was mild gastritis and a biopsy was taken from the antrum. 3. The duodenum was normal. IMPRESSION 1. Esophageal stricture with tiny ulceration with an adherent clot. 2. Successful esophageal dilatation with minimal bleeding. 3. Control of the adherent clot with 4 cc of epinephrine. 4. Short duration tachycardia to a heart rate of 130, controlled with intravenous metoprolol. PLAN 1. Increase his proton pump inhibitor to be BID. 2. Monitor his labs. 3. Repeat EGD if any evidence of bleeding in the next 24 hours. 4. Continue to hold the Xarelto for now. Loki Green MD HHS/SSB /9:35 AM /7:10 AM MTDD
[2017-04-20] MEDS: DOCUSATE SODIUM 50 MG/SENNA 8.6 MG TAB PO SCH (07:41)
[2017-04-20] MEDS: SODIUM CHLORIDE 0.9% FLUSH 10 ML FLUSH IV FLUSH SCH ×2 (07:43)
[2017-04-20 08:03] VITALS: BP 146/70; PULSE 74; RESP 16; TEMP 97.9; O2SAT 94
--- NOTE | 2017-04-20 09:23 | HHI.GIFU ---
Subjective Remarks Resting in bed. No active GI bleeding overnight. Swallowing improved. No complaints. Objective Vitals I&O Vital Signs Date Time Temp Pulse Resp B/P Pulse Ox O2 Delivery O2 Flow Rate FiO2 04/20/17 08:03 97.9 74 16 146/70 94 04/20/17 04:40 98.6 04/20/17 04:13 96.6 79 18 146/73 80 04/20/17 01:40 97.4 84 20 166/74 96 04/19/17 23:27 98.1 69 19 167/72 96 04/19/17 20:00 97.2 95 20 134/63 96 04/19/17 16:00 96.5 62 18 141/65 96 04/19/17 14:54 97.0 81 18 133/69 96 04/19/17 09:42 73 18 159/73 95 04/19/17 09:32 76 18 153/66 95 04/19/17 09:22 98.0 79 18 151/70 96 I/O 04/19/17 04/19/17 04/19/17 04/20/17 04/20/17 04/20/17 07:00 15:00 23:00 07:00 15:00 23:00 Intake Total 600 ml 50 ml Balance 600 ml 50 ml Intake Oral 50 ml IV Total 100 ml Other 500 ml # Voids 3 # Bowel Movements 2 Laboratory Date/Time Procedure Status Source Growth 04/16/17 22:30 Aerobic Blood Culture - Preliminary Resulted Blood Peripheral NO GROWTH IN 3 DAYS 04/16/17 22:30 Anaerobic Blood Culture - Preliminary Resulted Blood Peripheral NO GROWTH IN 3 DAYS Imaging Last Impressions Chest CT 04/16/172306 Signed Impressions: Service Date/Time: Sunday, April 16, 2017 23:45 - CONCLUSION: 1. Mild bibasilar atelectasis and potentially early/mild right base pneumonia in the proper clinical setting. 2. No pulmonary mass or nodule. 3. Coronary artery calcification. Cardiac pacer present. Dustin Coffey MD Chest X-Ray 04/16/172153 Signed Impressions: Service Date/Time: Sunday, April 16, 2017 22:22 - CONCLUSION: Questionable nodule or mild consolidation in the right upper lobe. Suggest a followup chest x-ray with good inspiration (PA and lateral views) to confirm resolution or consider chest CT for further evaluation. It is possible this represents the first rib and costal cartilage junction. Dustin Conway MD Physical Exam HEENT: Normocephalic; atraumatic; no jaundice. CHEST: CTA CARDIAC: RRR ABDOMEN: Soft, nondistended, nontender; no hepatosplenomegaly; bowel sounds are present in all four quadrants. EXTREMITIES: No clubbing, cyanosis, or edema. SKIN: Normal; no rash; no jaundice. PUBLIC SERVICE OFFICER: No focal deficits; oriented to self and place. Assessment and Plan Plan ASSESSMENT: - Dysphagia. No hx of known GERD or esophageal strictures, never had EGD. Pt has had 3 episodes of solids getting caught- he cannot tell if this is up high or lower. Yesterday's episode was more severe and he had significant coughing and bringing up a large amount of phlegm. He denies any odynophagia or shortness of breath. He is currently in no distress and is swallowing his secretions fine. ST was in and he passed his swallow evaluation. S/P EGD (04/19/17)---> Esophagus distal clot at GE Junction, with tiny ulceration. 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 No tumor appreciated. Mild gastritis. Biopsy taken from antrum. Normal duodenum. Duodenum: normal. Esophageal dilatation performed 16mm savary relook Blood in stomach repeat dilatation 17mm savary dilator Relook Same. minor bleeding from stricture. Clot still present. Injected 4cc of 1:10,000 epinephrine. Blanching occurred but not excessive. Pt has not had any signs of bleeding overnight. HH stable. On ppi. Pathology pending. Will advance diet to soft heart healthy diet. - PNA. Azithromycin, Ceftriaxone, Flagyl, Nebs per primary - Atrial fibrillation. On Xarelto at home. On hold here. - HTN, CAD, DM, CKD, Alzheimer's Dementia per primary. PLAN: - Soft heart healthy diet - Await pathology - Cont. PPI - Okay to resume Xarelto. There is some risk of further bleeding associated with this, but the benefits outweigh the risks. - FU LINNETTE 2 weeks - Okay to d/c home if tolerating diet and no further bleeding from GI standpoint - GI will sign off, please reconsult as needed - Pt seen and examined by Dr. Green and myself and this note is written on his behalf Leona Niño Apr 20, 2017 09:23
--- NOTE | 2017-04-20 09:27 | HHI.PR ---
Subjective Remarks Follow up post EGD bleeding. Patient is sitting up eating breakfast, he states he wants more than grits. GI has just increased diet to heart healthy. No further episodes of dysphagia. He denies any further bleeding. No chest pain, sob, fever or chills noted. Objective Vitals Vital Signs Date Time Temp Pulse Resp B/P Pulse Ox O2 Delivery O2 Flow Rate FiO2 04/20/17 08:03 97.9 74 16 146/70 94 04/20/17 04:40 98.6 04/20/17 04:13 96.6 79 18 146/73 80 04/20/17 01:40 97.4 84 20 166/74 96 04/19/17 23:27 98.1 69 19 167/72 96 04/19/17 20:00 97.2 95 20 134/63 96 04/19/17 16:00 96.5 62 18 141/65 96 04/19/17 14:54 97.0 81 18 133/69 96 04/19/17 09:42 73 18 159/73 95 04/19/17 09:32 76 18 153/66 95 04/19/17 09:22 98.0 79 18 151/70 96 I/O 04/19/17 04/19/17 04/19/17 04/20/17 04/20/17 04/20/17 07:00 15:00 23:00 07:00 15:00 23:00 Intake Total 600 ml 50 ml Balance 600 ml 50 ml Intake Oral 50 ml IV Total 100 ml Other 500 ml # Voids 3 # Bowel Movements 2 Result Diagram: 04/19/1718 04/19/1718 Imaging Last Impressions Chest CT 04/16/172306 Signed Impressions: Service Date/Time: Sunday, April 16, 2017 23:45 - CONCLUSION: 1. Mild bibasilar atelectasis and potentially early/mild right base pneumonia in the proper clinical setting. 2. No pulmonary mass or nodule. 3. Coronary artery calcification. Cardiac pacer present. Dustin Coffey MD Chest X-Ray 04/16/172153 Signed Impressions: Service Date/Time: Sunday, April 16, 2017 22:22 - CONCLUSION: Questionable nodule or mild consolidation in the right upper lobe. Suggest a followup chest x-ray with good inspiration (PA and lateral views) to confirm resolution or consider chest CT for further evaluation. It is possible this represents the first rib and costal cartilage junction. Dustin Conway MD Objective Remarks GENERAL: Well nourished patient in no distress SKIN: Warm and dry. HEAD: Atraumatic. Normocephalic. EYES: Pupils equal and round. No scleral icterus. No injection or drainage. ENT: No nasal bleeding or discharge. Mucous membranes pink and moist. NECK: Trachea midline. No JVD. CARDIOVASCULAR: Regular rate and rhythm. RESPIRATORY: No accessory muscle use. Clear to auscultation. Breath sounds equal bilaterally. GASTROINTESTINAL: Abdomen soft, non-tender, nondistended. Hepatic and splenic margins not palpable. MUSCULOSKELETAL: Extremities without clubbing, cyanosis, or edema. No obvious deformities. NEUROLOGICAL: Awake and alert. Motor grossly within normal limits. Normal speech. PSYCHIATRIC: Appropriate mood and affect; insight and judgment normal. Medications and IVs Current Medications Medications (Trade) Dose Ordered Sig/Sera Route Start Time Stop Time Status Last Admin (D50w (Vial) Inj) 50 ml UNSCH PRN IV 04/17/17 00:30 Glucagon 1 mg 1 mg UNSCH PRN OTHER 04/17/17 00:30 (NS 1000 ml Inj) 1,000 ml @ 100 mls/hr Q10H IV 04/17/17 00:24 04/20/17 07:42 (NS Flush) 2 ml UNSCH PRN IV FLUSH 04/17/17 00:30 (NS Flush) 2 ml BID IV FLUSH 04/17/17 09:00 04/20/17 00:00 (Zofran Inj) 4 mg Q6H PRN IVP 04/17/17 00:30 (Morphine Inj) 1 mg Q3H PRN IV 04/17/17 00:30 (Morphine Inj) 2 mg Q3H PRN IV 04/17/17 00:30 (Annamaria-Colace) 1 tab BID PO 04/17/17 09:00 04/20/17 07:41 (Milk Of Magnesia Liq) 30 ml Q12H PRN PO 04/17/17 00:30 (Senokot) 17.2 mg Q12H PRN PO 04/17/17 00:30 (Dulcolax Supp) 10 mg DAILY PRN RECTAL 04/17/17 00:30 Lactulose 30 ml 30 ml DAILY PRN PO 04/17/17 00:30 Ceftriaxone Sodium 1000 mg/ Sodium Chloride 100 ml @ 200 mls/hr Q24H IV 04/17/17 23:00 04/20/17 01:53 Azithromycin 500 mg/Sodium Chloride 250 ml @ 250 mls/hr Q24H IV 04/18/17 00:00 04/20/17 02:53 (Flagyl 500 Mg Inj) 100 ml @ 100 mls/hr Q8H IV 04/17/17 08:00 04/20/17 07:41 (Benadryl Inj) 25 mg Q6H PRN IV 04/17/17 13:45 04/17/17 13:48 (Protonix Inj) 40 mg BIDAC IV PUSH 04/19/17 16:00 04/20/17 05:55 Urinary Catheter: No A/P Problem List: (1) Dysphagia ICD Code: R13.10 Status: Acute (2) PNA (pneumonia) ICD Code: J18.9 Status: Acute (3) HTN (hypertension) ICD Code: I10 Status: Acute (4) DM (diabetes mellitus) ICD Code: E11.9 Status: Acute Assessment and Plan 86-year-old male with a PMH of A. fib on Xarelto, HTN, CAD, Alzheimer's Dementia and DM who was brought to the ER by family secondary to multiple episodes of choking. Dysphagia: Progressive. Family reports 3rd episode of coughing/choking while eating in the last 1wk. No airway compromise, reports mostly thick, clear secretions. Possibly related to progressive dementia. Consult Speech Therapy for Swallow Study. Gastroenterology consulted, EGD completed with dilation on , post bleeding noted. Restart Xarelto 04/20/17 per GI. Heart healthy diet ordered by GI. GI has cleared patient for discharge if he tolerates solid food. Aspiration Pneumonia: CXR w/ questionable nodule or mild consolidation right upper lobe, CT Chest with mild basilar atelectasis and early/mild right base pneumonia, no nodule or mass noted, images reviewed by me. Likely due to Aspiration from dysphagia. Continue antibiotics with IV Rocephin/Zithro/Flagyl. DuoNeb prn. Check sputum culture. Will discharge with Levaquin for 4 days. HTN: Will monitor. Currently stable. DM: Sliding scale w/ Accu-Cheks. Hold Metformin. DVT Prophylaxis: Xarelto on hold, SCDs Discussed plan with patient, RN, patients and daughter. Discharge Planning later today if patient tolerates solid foods Problem Qualifiers (1) PNA (pneumonia): Qualified Code: J18.1 - Pneumonia of right lower lobe due to infectious organism Emperatriz Tran Apr 20, 2017 09:27
[2017-04-20] MEDS ORDERED: RIVAROXABAN 20 MG TAB PO SCH (09:45)
[2017-04-20] MEDS ORDERED: PANT40TA3 PO (09:57)
[2017-04-20] MEDS ORDERED: LEVA750T9 PO (09:58)
--- NOTE | 2017-04-20 09:58 | HHI.DCPOC ---
Discharge Care Plan Diagnosis: (1) HTN (hypertension) (2) DM (diabetes mellitus) (3) PNA (pneumonia) (4) Dysphagia Goals to Promote Your Health * To prevent worsening of your condition and complications * To maintain your health at the optimal level Directions to Meet Your Goals Take your medications as prescribed Follow your dietary instruction Follow activity as directed Keep your appointments as scheduled Take your immunizations and boosters as scheduled If your symptoms worsen call your PCP, if no PCP go to Urgent Care Center or Emergency Room Smoking is Dangerous to Your Health. Avoid second hand smoke Call the 24-hour hour crisis hotline for domestic abuse at Emperatriz Tran Apr 20, 2017 09:58
[2017-04-20 12:04] VITALS: BP 135/66; PULSE 75; RESP 18; TEMP 97.4; O2SAT 95
[2017-04-20 12:15] LABS: HEMATOCRIT 37.1 % (39.0-51.0); MEAN CELL VOLUME 90.8 FL (80.0-100.0); MEAN CORPUSCULAR HEMOGLOBIN 29.9 PG (27.0-34.0); MEAN CORPUSCULAR HGB CONC 32.9 % (32.0-36.0); PLATELET COUNT 144 TH/MM3 (150-450); RED BLOOD COUNT 4.09 MIL/MM3 (4.50-5.90); RED CELL DISTRIBUTION WIDTH 14.7 % (11.6-17.2); REVIEW FLAG FINAL
--- NOTE | 2017-04-20 12:56 | HHI.DS ---
Discharge Summary Admission Date Apr 17, 2017 at 00:20 Discharge Date: Apr 20, 2017 Admitting Diagnosis Aspiration pneumonia (1) Dysphagia ICD Code: R13.10 Diagnosis: Principal (2) PNA (pneumonia) ICD Code: J18.9 Diagnosis: Secondary (3) HTN (hypertension) ICD Code: I10 Diagnosis: Secondary (4) DM (diabetes mellitus) ICD Code: E11.9 Diagnosis: Secondary Procedures EGD with dilation Brief History - From Admission This is an 86-year-old male with a PMH of A. fib on Xarelto, HTN, CAD, Alzheimer 's Dementia and DM who was brought to the ER by family secondary to episode of choking during dinner. Per and Daughter at bedside, patient was finishing dinner, put his fork down and had sudden onset of coughing/choking followed by copious amounts of clear, thick secretions which reports was approximately 2 cups full. No nausea, vomiting, no respiratory compromise or SOB. reports similar episode approx 1wk ago while eating rice, however much less severe. States she called PCP's office and was told to come to ER for further evaluation. On arrival, BP 162/75, HR 101, O2 sat 96% on RA, Afebrile. CBC unremarkable. Chemistry essentially unremarkable except for GFR 56. Lactic Acid normal. Troponin negative. UA negative. CXR with questionable nodule or mild consolidation right upper lobe with recommendation for CT. CT Chest with mild bibasilar atelectasis and potentially early/mild right base pneumonia no nodule or mass noted. Concern for aspiration, s/p Rocephin/Zithro/Flagyl in ER. CBC/BMP: 04/20/17 1142 04/19/17 0618 Significant Findings Laboratory Tests Test 04/18/17 04/19/17 04/20/17 06:33 06:18 11:42 Red Blood Count 3.78 MIL/MM3 3.99 MIL/MM3 4.09 MIL/MM3 (4.50-5.90) (4.50-5.90) (4.50-5.90) Hemoglobin 11.2 GM/DL 12.0 GM/DL 12.2 GM/DL (13.0-17.0) (13.0-17.0) (13.0-17.0) Hematocrit 34.3 % 35.8 % 37.1 % (39.0-51.0) (39.0-51.0) (39.0-51.0) Platelet Count 123 TH/MM3 126 TH/MM3 144 TH/MM3 (150-450) (150-450) (150-450) Neutrophils (%) (Auto) 74.4 % 73.3 % (16.0-70.0) (16.0-70.0) Monocytes (%) (Auto) 11.5 % 13.0 % (0.0-8.0) (0.0-8.0) Lymphocytes # (Auto) 0.7 TH/MM3 0.8 TH/MM3 (1.0-4.8) (1.0-4.8) Chloride Level 109 MEQ/L 109 MEQ/L (98-107) (98-107) Calcium Level 7.5 MG/DL 7.4 MG/DL (8.5-10.1) (8.5-10.1) Total Protein 5.1 GM/DL 5.0 GM/DL (6.4-8.2) (6.4-8.2) Albumin 2.4 GM/DL (3.4-5.0) Monocytes # (Auto) 1.0 TH/MM3 (0-0.9) Creatinine 0.56 MG/DL (0.60-1.30) Imaging Last Impressions Chest CT 04/16/178 Signed Impressions: Service Date/Time: Sunday, April 16, 2017 23:45 - CONCLUSION: 1. Mild bibasilar atelectasis and potentially early/mild right base pneumonia in the proper clinical setting. 2. No pulmonary mass or nodule. 3. Coronary artery calcification. Cardiac pacer present. Dustin Coffey MD Chest X-Ray 04/16/172 Signed Impressions: Service Date/Time: Sunday, April 16, 2017 22:22 - CONCLUSION: Questionable nodule or mild consolidation in the right upper lobe. Suggest a followup chest x-ray with good inspiration (PA and lateral views) to confirm resolution or consider chest CT for further evaluation. It is possible this represents the first rib and costal cartilage junction. Dustin Conway MD PE at Discharge GENERAL: Well nourished patient in no distress SKIN: Warm and dry. HEAD: Atraumatic. Normocephalic. EYES: Pupils equal and round. No scleral icterus. No injection or drainage. ENT: No nasal bleeding or discharge. Mucous membranes pink and moist. NECK: Trachea midline. No JVD. CARDIOVASCULAR: Regular rate and rhythm. RESPIRATORY: No accessory muscle use. Clear to auscultation. Breath sounds equal bilaterally. GASTROINTESTINAL: Abdomen soft, non-tender, nondistended. Hepatic and splenic margins not palpable. MUSCULOSKELETAL: Extremities without clubbing, cyanosis, or edema. No obvious deformities. NEUROLOGICAL: Awake and alert. Motor grossly within normal limits. Normal speech. PSYCHIATRIC: Appropriate mood and affect; insight and judgment normal. Hospital Course 86-year-old male with a PMH of A. fib on Xarelto, HTN, CAD, Alzheimer's Dementia and DM who was brought to the ER by family secondary to multiple episodes of choking. Dysphagia: Progressive. Family reports 3rd episode of coughing/choking while eating in the last 1wk. No airway compromise, reports mostly thick, clear secretions. Possibly related to progressive dementia. Consult Speech Therapy for Swallow Study. Gastroenterology consulted, EGD completed with dilation on , post bleeding noted. Restart Xarelto 04/20/17 per GI. Heart healthy diet ordered by GI. GI has cleared patient for discharge if he tolerates solid food. Aspiration Pneumonia: CXR w/ questionable nodule or mild consolidation right upper lobe, CT Chest with mild basilar atelectasis and early/mild right base pneumonia, no nodule or mass noted, images reviewed by me. Likely due to Aspiration from dysphagia. Continue antibiotics with IV Rocephin/Zithro/Flagyl. DuoNeb prn. Check sputum culture. Will discharge with Levaquin for 4 days. HTN: Will monitor. Currently stable. DM: Sliding scale w/ Accu-Cheks. Hold Metformin. DVT Prophylaxis: Xarelto on hold, SCDs Improved, tolerates food. Discharged in stable condition to follow up as OP with PCP and consultants. Pt Condition on Discharge: Stable Discharge Disposition: Discharge Home Discharge Time: > 30 minutes Discharge Instructions DIET: Follow Instructions for: Heart Healthy Diet, Soft Diet Activities you can perform: Regular-No Restrictions Follow up Referrals: Gastroenterology - 2 Weeks @ [facility] PCP Follow-up - 2-3 Days New Medications: Levofloxacin (Levaquin) 750 Mg Tablet 1 TAB PO DAILY Infection #4 TAB Pantoprazole (Pantoprazole) 40 Mg Tab 40 MG PO BID Reflux #30 Ref 0 TAB Continued Medications: Allopurinol (Allopurinol) 100 Mg Tab 100 MG PO DAILY Gout #30 Ref 0 TAB Aspirin (Aspirin Low Dose) 81 Mg Chew 162 MG CHEW DAILY Ref 0 TAB Atorvastatin (Atorvastatin) 20 Mg Tab 20 MG PO HS Cholesterol Management #30 Ref 0 TAB Lisinopril (Lisinopril) 2.5 Mg Tab 2.5 MG PO DAILY #30 Ref 0 TAB Memantine Er (Namenda Xr) 28 Mg Caper 28 MG PO DAILY Alzheimer Disease #30 Ref 0 CAP Metformin (Metformin) 500 Mg Tab 500 MG PO DAILY With a meal Blood Sugar Management #30 Ref 0 TAB Metoprolol Succinate ER 24 HR (Metoprolol Succinate ER 24 HR) 25 Mg Tab 25 MG PO DAILY #30 Ref 0 TAB Rivaroxaban (Xarelto) 20 Mg Tab 20 MG PO DAILY Blood Clot Prevention Ref 0 TAB Neli Woodson MD Apr 20, 2017 12:56
== END 2017-04-20 14:39 | disposition home or self-care (01) ==
LOC: NEPE 21:28 → NEDA 04-17 00:20 → NEPHCDU 04-17 02:02
PROVIDERS: ADMIT Hospitalist; ATTEND Hospitalist
DX: K22.2 Esophageal obstruction (principal); K29.50 Unspecified chronic gastritis without bleeding; J69.0 Pneumonitis due to inhalation of food and vomit; E11.22 Type 2 diabetes mellitus with diabetic chronic kidney disease; I12.9 Hypertensive chronic kidney disease with stage 1 through stage 4 chronic kidney disease, or unspecified chronic kidney disease; N18.3 Chronic kidney disease, stage 3 (moderate); I25.10 Atherosclerotic heart disease of native coronary artery without angina pectoris; E78.00 Pure hypercholesterolemia, unspecified; I25.2 Old myocardial infarction; M10.9 Gout, unspecified; G30.9 Alzheimer's disease, unspecified; F02.80 Dementia in other diseases classified elsewhere, unspecified severity, without behavioral disturbance, psychotic disturbance, mood disturbance, and anxiety; Z88.1 Allergy status to other antibiotic agents; Z88.8 Allergy status to other drugs, medicaments and biological substances; Z79.84 Long term (current) use of oral hypoglycemic drugs; Z79.82 Long term (current) use of aspirin; I48.91 Unspecified atrial fibrillation; Z79.01 Long term (current) use of anticoagulants; Z95.0 Presence of cardiac pacemaker; Z95.5 Presence of coronary angioplasty implant and graft
CPT/HCPCS: 43239; 43248; 71010; 71260; 80048; 80053; 81001; 82550; 82948; 83036; 83605; 83690; 83880; 84155; 84484; 85025; 85027; 85610; 85730; 87040; 88305; 88312; 92526; 92610; 93005; 97110; 97116; 97162; 99285; C1769; C9113; G0378; G8987; G8988; G8996; G8997; G8998; J0171; J0456; J0696; J1200; J1815; J7030; J7050; Q9967

== ENCOUNTER 2017-05-24 11:33 | Emergency (ER) | payer OTHER ==
[~2017-05-24 11:33] MED LIST changes: -ALBU8I INH; -ASPI1TAB7 PO; +ASPI81CH37 CHEW; -ATOR20TA PO; +ATOR20TA15 PO; -CHOL50006 PO; -CYAN25003 PO; -DOCU1CAP39 PO; -LEVA750T PO; +LEVA750T9 PO; +LISI2.5T3 PO; +METF500T PO; +METO25TA6 PO; -METO50CR PO; -NEOSOIN TOP; +PANT40TA3 PO; -PROT40TA PO; -RIVA20 PO; -ROBIDM5S PO; +XARE20TA PO
[2017-05-24 11:46] VITALS: BP_SYST 159; BP_SYST 70; BP_DIAS 60; BP_DIAS 70; PULSE 20; PULSE 60; RESP 16; TEMP 98; O2SAT 93
[2017-05-24 13:15] LABS: AUTOMATED NEUTROPHIL # 7.2 TH/MM3 (1.8-7.7); BASOPHIL # 0.1 TH/MM3 (0-0.2); BASOPHIL % 1.1 % (0.0-2.0); EOSINOPHIL # 0.2 TH/MM3 (0-0.4); EOSINOPHIL % 1.8 % (0.0-4.0); HEMO FLAGS DIFF FINAL; LYMPH % 16.1 % (9.0-44.0); LYMPHOCYTE # 1.6 TH/MM3 (1.0-4.8); MEAN CELL VOLUME 91.7 FL (80.0-100.0); MEAN CORPUSCULAR HGB CONC 33.8 % (32.0-36.0); MONO % 9.2 % (0.0-8.0); NEUT % 71.8 % (16.0-70.0); PLATELET COUNT 252 TH/MM3 (150-450); RED BLOOD COUNT 4.58 MIL/MM3 (4.50-5.90); RED CELL DISTRIBUTION WIDTH 14.1 % (11.6-17.2); WHITE BLOOD COUNT 10.1 TH/MM3 (4.0-11.0)
[2017-05-24 13:32] LABS: ANION GAP 9 MEQ/L (5-15); BICARBONATE 23.7 MEQ/L (21.0-32.0); BLOOD UREA NITROGEN 20 MG/DL (7-18); CHLORIDE 105 MEQ/L (98-107); GLOMERULAR FILTRATION RATE 72 ML/MIN (>89); POTASSIUM 4.5 MEQ/L (3.5-5.1); SODIUM (NA) 138 MEQ/L (136-145)
[2017-05-24 13:38] LABS: CREATINE KINASE 31 U/L (39-308)
--- NOTE | 2017-05-24 14:47 | PD ---
HPI Chief Complaint: Musculoskeletal Complaint Time Seen by Provider: 14:45 Travel History International Travel<30 days: No Contact w/Intl Traveler<30days: No Traveled to known affect area: No History of Present Illness HPI 86 YO M with PMH of CAD status post stenting, dysrhythmia status post pacemaker insertion, CK D stage III on Xarelto presents to the ED via EMS for evaluation of dull, constant pain from the right shoulder to the fingertips. Onset upon waking this morning. Patient can identify no acute injury. He denies numbness, tingling, weakness, limitations to range of motion of the extremity. He denies CP, SOB, palpitations, diaphoresis. He endorses compliance with his daily medications. states that the patient complained of pain while receiving a sponge bath this morning. His gave him 2 Tylenol this morning and he is asymptomatic on presentation. His called the primary care Dr. Nye's office referred her to the emergency room. PFSH Past Medical History Hx Anticoagulant Therapy: Yes (XARELTO) Atrial Fibrillation: Yes Heart Rhythm Problems: Yes (BIFASCICULAR BLOCK) Cancer: No Cardiovascular Problems: Yes (STENT, PACEMAKER) High Cholesterol: Yes Coronary Artery Disease: Yes Diabetes: Yes (METFORMIN) Diminished Hearing: No Endocrine: Yes Gout: Yes Genitourinary: No Hepatitis: No Hiatal Hernia: No Hypertension: Yes Immune Disorder: No Musculoskeletal: Yes (arthritis back problems) Neurologic: No Psychiatric: No Reproductive: No Respiratory: No Myocardial Infarction: Yes Renal Failure: Yes (CHRONIC KIDNEY DISEASE STAGE III) Thyroid Disease: No Past Surgical History Abdominal Surgery: Yes (VENTRAL HERNIA REPAIR) Body Medical Devices: x1 cardiac stent Cardiac Surgery: Yes (pacemaker insertion) Coronary Stent: Yes (X 1) Joint Replacement: No Pacemaker: Yes Other Surgery: Yes Social History Alcohol Use: No Tobacco Use: No (QUIT 40 YEARS AGO) Substance Use: No Allergies-Medications (Allergen,Severity, Reaction): Coded Allergies: Baclofen (Verified Allergy, Severe, Anaphylaxis, 05/24/17) Cipro (Verified Allergy, Severe, Rash, 05/24/17) Levofloxacin (Verified Allergy, Severe, Rash, 05/24/17) Neosporin (Verified Allergy, Severe, Rash, 05/24/17) Simvastatin (Verified Allergy, Severe, Rash, 05/24/17) Zosyn (Verified Allergy, Severe, Hives, 05/24/17) Pantoprazole (Verified Allergy, Unknown, 05/24/17) Reported Meds & Prescriptions Reported Meds & Active Scripts Active Reported Nystatin Topical (Nystatin) 100,000 unit/gm Cream 1 Applic TOPICAL BID Fluconazole 150 Mg Tab 150 Mg PO DAILY 3 Days Vitamin D3 (Cholecalciferol) 5,000 Unit Cap 5,000 Units PO DAILY Namenda Xr (Memantine) 28 Mg Caper 28 Mg PO DAILY Xarelto (Rivaroxaban) 20 Mg Tab 20 Mg PO DAILY Atorvastatin (Atorvastatin Calcium) 20 Mg Tab 20 Mg PO HS Metoprolol Succinate ER 24 HR (Metoprolol Succinate) 25 Mg Tab 25 Mg PO DAILY Lisinopril 2.5 Mg Tab 2.5 Mg PO DAILY Aspirin Low Dose (Aspirin) 81 Mg Chew 162 Mg CHEW DAILY Allopurinol 100 Mg Tab 100 Mg PO DAILY Metformin (Metformin HCl) 500 Mg Tab 500 Mg PO DAILY With a meal Review of Systems Except as stated in HPI: all other systems reviewed are Neg Physical Exam Narrative GENERAL: Well-nourished, well-developed thin white male in no acute distress. SKIN: Focused skin assessment warm/dry. HEAD: Normocephalic. EYES: No scleral icterus. No injection or drainage. NECK: Supple, trachea midline. No JVD or lymphadenopathy. CARDIOVASCULAR: Regular rate and rhythm without murmurs, gallops, or rubs. RESPIRATORY: Breath sounds equal bilaterally. No accessory muscle use. GASTROINTESTINAL: Abdomen soft, non-tender, nondistended. MUSCULOSKELETAL: No cyanosis, or edema. FOCUSED RIGHT UPPER EXTREMITY EXAM: 2+ radial pulse. Patient regained full, active, painless range of motion of the shoulder, elbow and wrist. No tenderness to palpation of the entire length of the arm. Strong finger to thumb opposition on each digit. Sensation intact to light touch distally. BACK: Nontender without obvious deformity. No CVA tenderness. Data Data Last Documented VS Vital Signs Date Time Temp Pulse Resp B/P Pulse Ox O2 Delivery O2 Flow Rate FiO2 05/24/17 15:01 60 15 165/70 99 Room Air 05/24/17 11:46 98.0 Orders Electrocardiogram (05/24/17 12:16) Complete Blood Count With Diff (05/24/17 12:16) Basic Metabolic Panel (Bmp) (05/24/17 12:16) Ckmb (Isoenzyme) Profile (05/24/17 12:16) Troponin I (05/24/17 12:16) Shoulder, Complete (>2vws) (05/24/17 14:54) Labs Laboratory Tests Test 05/24/17 12:50 White Blood Count 10.1 TH/MM3 Red Blood Count 4.58 MIL/MM3 Hemoglobin 14.2 GM/DL Hematocrit 42.0 % Mean Corpuscular Volume 91.7 FL Mean Corpuscular Hemoglobin 31.0 PG Mean Corpuscular Hemoglobin 33.8 % Concent Red Cell Distribution Width 14.1 % Platelet Count 252 TH/MM3 Mean Platelet Volume 8.7 FL Neutrophils (%) (Auto) 71.8 % Lymphocytes (%) (Auto) 16.1 % Monocytes (%) (Auto) 9.2 % Eosinophils (%) (Auto) 1.8 % Basophils (%) (Auto) 1.1 % Neutrophils # (Auto) 7.2 TH/MM3 Lymphocytes # (Auto) 1.6 TH/MM3 Monocytes # (Auto) 0.9 TH/MM3 Eosinophils # (Auto) 0.2 TH/MM3 Basophils # (Auto) 0.1 TH/MM3 CBC Comment DIFF FINAL Differential Comment Sodium Level 138 MEQ/L Potassium Level 4.5 MEQ/L Chloride Level 105 MEQ/L Carbon Dioxide Level 23.7 MEQ/L Anion Gap 9 MEQ/L Blood Urea Nitrogen 20 MG/DL Creatinine 0.99 MG/DL Estimat Glomerular Filtration 72 ML/MIN Rate Random Glucose 86 MG/DL Calcium Level 9.4 MG/DL Total Creatine Kinase 31 U/L Troponin I LESS THAN 0.02 NG/ML MDM Medical Decision Making Medical Screen Exam Complete: Yes Emergency Medical Condition: Yes Differential Diagnosis OA versus musculoskeletal pain versus radiculopathy versus sprain versus strain versus less likely fracture versus other Narrative Course 86-year-old male with PMH of CAD S/P stenting, dysrhythmia S/P pacemaker, CK D stage III, on Xarelto presents the ED via EMS for evaluation of dull, constant pain from the right shoulder to the fingertips, onset upon waking this morning. Patient reports no acute injury. Denies chest pain, shortness breath, palpitations, diaphoresis, numbness, tingling, weakness, limitations to ROM. Patient treated with 2 Tylenol and is asymptomatic on presentation. Vitals reviewed. Physical exam is unremarkable. Patient is neurovascularly intact, strength 5/5 in the entire arm. EKG rate 60, atrial paced rhythm. LAD, R BBB. Motion artifact. No acute ST changes. Reviewed by Dr. Chavez. Cardiac enzymes negative 1 Lab work unremarkable. XR right shoulder reveals moderate OA. Patient and his were instructed to rest, return to normal gentle activity as tolerated, continue treating pain with Tylenol, follow-up with the orthopedist. The patient is stable and discharged home. Diagnosis Primary Impression: Osteoarthritis of right shoulder Qualified Code: M19.011 - Osteoarthritis of right shoulder, unspecified osteoarthritis type Referrals: Linus Land MD Patient Instructions: General Instructions, Osteoarthritis (ED) Additional Instructions: Rest, hydrate. Return to normal, gentle activity as tolerated. Continue to treat symptomatically with Tylenol. Follow up with the orthopedist for further evaluation. Return to the ED for any urgent or emergent medical condition. Disposition: 01 DISCHARGE HOME Condition: Stable Estrellita Dumont May 24, 2017 14:47
[2017-05-24] MEDS ORDERED: NYST15T TOPICAL (14:56)
[2017-05-24] MEDS ORDERED: CHOL5000 PO (14:56)
[2017-05-24] MEDS ORDERED: FLUC150T PO (14:56)
[2017-05-24 15:01] VITALS: BP 165/70; PULSE 60; RESP 15; O2SAT 99
--- NOTE | 2017-05-24 15:54 | RADRPT ---
EXAM DATE/TIME: 05/24/2017 15:12 [facility] COMPARISON: No previous studies available for comparison. INDICATIONS : Right arm pain. MEDICAL HISTORY : Myocardial infarction. SURGICAL HISTORY : Pacemaker. Coronary artery stent. ENCOUNTER: Initial ACUITY: 2 days PAIN SCORE: Non-responsive. LOCATION: Right shoulder FINDINGS: There are extensive changes evident. Alignment is anatomic. Fracture is not appreciated. The lung apex is clear. CONCLUSION: Extensive degenerative changes otherwise negative. Chito Doran MD FACR on May 24, 2017 at 15:51 Board Certified Radiologist. This report was verified electronically.
--- NOTE | 2017-05-25 13:02 | EKG ---
Date Performed: 05/24/2017 Time Performed: 12:31:27 PTAGE: 86 years EKG: ELECTRONIC ATRIAL PACEMAKER MARKED LEFT AXIS DEVIATION RIGHT BUNDLE BRANCH BLOCK POSSIBLE A NTERIOR MYOCARDIAL INFARCTION ABNORMAL ECG PREVIOUS TRACING : 05/24/2017 12.31 DOCTOR: Todd Nixon Interpretating Date/Time 05/25/2017 14:11:29
== END 2017-05-24 17:06 | disposition home or self-care (01) ==
LOC: NEPE 11:33
DX: M19.011 Primary osteoarthritis, right shoulder (principal); I25.10 Atherosclerotic heart disease of native coronary artery without angina pectoris; I45.10 Unspecified right bundle-branch block; R94.31 Abnormal electrocardiogram [ECG] [EKG]; E11.22 Type 2 diabetes mellitus with diabetic chronic kidney disease; I12.9 Hypertensive chronic kidney disease with stage 1 through stage 4 chronic kidney disease, or unspecified chronic kidney disease; N18.3 Chronic kidney disease, stage 3 (moderate); I48.91 Unspecified atrial fibrillation; I25.2 Old myocardial infarction
CPT/HCPCS: 73030; 80048; 82550; 84484; 85025; 93005; 99285